=== PATIENT | male | born 1985 | race Caucasian/White ===

== ENCOUNTER → 2023-01-17 07:30 | Outpatient (BNVA) | payer OTHER, SELFPAY | PROVIDERS: Visit Provider Physician Assistant Surgical ==

== ENCOUNTER 2023-01-26 08:26 | Outpatient (AMB) | payer OTHER, SELFPAY ==
--- NOTE | 2023-01-26 11:08 | MHC.OFFVISWM ---
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 49.0 Allergies Penicillins Allergy (Mild, Verified 01/26/23 11:08) Rash Medication List - Last Reconciled 01/26/23 by Vinny Roland MD bupropion HCl 150 mg PO QAM buspirone 15 mg PO BID famotidine 20 mg PO BEDTIME icosapent ethyl (Vascepa) 2 grams PO BID levothyroxine 150 mcg PO DAILY lisinopril 20 mg PO DAILY metformin ER 500 mg PO DAILY tadalafil 5 mg PO DAILY HPI 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 BMI 49.0 HPI Details Start time: 10.57am, End time: 11.42am ?I spent 40 minutes speaking with the patient on the phone plus an additional 5 minutes reviewing and updating records for a total of 45 minutes HPI Comments History of Present Illness Details Previous weight loss efforts: Keto diet, exercise Wakes up: 3.30am, Sleeps: 8pm Breakfast: 6am Premier protein shake Lunch: 10.30-11am (protein and vegetables) Dinner: 6pm (protein, vegetable, starch) Snacks: occasionally donut at 9am, 4pm-5pm (chips) Exercise: none, has gym access Fluids: occasional Coffee, tea: none, soda: occasional regular coke, juice: Gatorade zero, ETOH: none PFSH Medical History (Updated 01/26/23 @ 11:27 by Vinny Roland MD) Erectile dysfunction Hypothyroidism GERD (gastroesophageal reflux disease) Anxiety Depression Sleep apnea treated with continuous positive airway pressure (CPAP) Hyperlipidemia Hypertension Morbid obesity Surgical History (Updated 01/17/23 @ 07:48 by Paula Guillaume CMA) No history of previous surgery Family History (Updated 01/17/23 @ 07:50 by Paula Guillaume CMA) Mother No problems noted. Father Lung cancer Brain cancer Social History (Updated 01/17/23 @ 07:50 by Paula Guillaume CMA) Alcohol intake: never Patient Tobacco Use Status: Never used Tobacco Physical Exam Vital Signs: BMI result Body Mass Index 49.0 Assessment & Plan Assessment & Plan (1) Morbid obesity: Code(s): E66.01 - Morbid (severe) obesity due to excess calories Plan: 1.? Plan for lap sleeve gastrectomy. If diaphragmatic or ventral hernias are present at time of surgery, these will be repaired laparoscopically as well. Risks and complications were discussed in detail including possible conversion to an open procedure, anastomotic leak, bleeding requiring transfusion, small bowel obstruction, , DVT and pulmonary embolism, cardiac, or pulmonary complications, as custodial complications such as anastomotic ulcer, insufficient weight loss and vitamin deficiencies. I emphasized the importance of close follow-up, adherence to instructions and good communication. 2. Nutritional counseling. Start with one Premier protein (buy at [employer], [employer], [employer], [employer] shakes (ONE scoop in 8oz low fat unsweetened almond milk each) at 5am-7am, 3 protein bars (Zone Perfect protein bars, buy at [employer], [employer], [employer] ([place] or [employer]) at 8am-10am, 11am-1pm and 2pm-4pm, another HALF protein bar at 5pm-6pm, dinner at 7pm (12 forks of protein and 12 forks of salad/vegetables). So you do 1 protein shake, 3.5 protein bars and one meal per day. Meal to include lean meat (beef, fish, pork, turkey, chicken), or albanian yogurt, or egg whites, or beans with a salad with olive oil and fruits (berries, pears, apples, kiwi). Avoid salt, breads, potatoes, rice, pasta, desserts. 3. Each shake would be drunk slowly, like coffee in a period of 2 hours. 4. Cut each bar in 4 pieces and eat each piece in 30min ?to make each bar last 2 hours. 5. I emphasized the importance of measuring accurately the food portion and measure it when serving the food in plate 6. The meal portions include 12 full-size forks of meat and 12 full-size forks of salad. You always eat the meat portion but you can replace up to 6 forks for salad/vegetables with rice, potatoes or pasta, or a fruit ?if you like. The less you do it the better weight loss will be. 7. One full-size fork is what it can be scooped on the fork without falling aside and not what can be bit with the fork. Use regular forks like those you find in a typical restaurant. 8.? Please send me weight measurements as soon as possible and then once a week. Always include your diet and exercise plan. 9. Start treadmill with an incline of 2.0 and speed of 3.5 mph. Increase incline by 1 every 3 min to a max incline of 8.0, stay 3min at 8.0 and then return to 2.0 and repeat same steps until calorie goal is met. Goal is to burn 2000 calories per week on exercise, which means either 300 calories daily, or 400 calories 5 days per week, or 500 calories 4 days per week, or 650 calories 3 days per week. 10. Alternatively purchase a stationary bike, elliptical or treadmill at home that can track calories. Let me know if you do so I can give you an exercise plan. 11.Goal is to lose at least 1.5-2lbs per week 12. Goal to lose 10% of your weight before surgery, which is about 35lbs. Ultimate weight goal: 311lbs before surgery 13. Please follow the diet plan exactly without any change. If you don't like something about the plan or you feel hungry you need to communicate with me so I can help you revise the plan. You should not change the plan yourself. Orders: Orders Insulin Today E03.9 - Hypothyroidism, unspecified, E66.01 - Morbid (severe) obesity due to excess calories, E78.5 - Hyperlipidemia, unspecified, G47.30 - Sleep apnea, unspecified, I10 - Essential (primary) hypertension, K21.9 - Gastro-esophageal reflux disease without esophagitis Hemoglobin A1c Today E03.9 - Hypothyroidism, unspecified, E66.01 - Morbid (severe) obesity due to excess calories, E78.5 - Hyperlipidemia, unspecified, G47.30 - Sleep apnea, unspecified, I10 - Essential (primary) hypertension, K21.9 - Gastro-esophageal reflux disease without esophagitis Complete Blood Count Auto Diff Today E03.9 - Hypothyroidism, unspecified, E66.01 - Morbid (severe) obesity due to excess calories, E78.5 - Hyperlipidemia, unspecified, G47.30 - Sleep apnea, unspecified, I10 - Essential (primary) hypertension, K21.9 - Gastro-esophageal reflux disease without esophagitis IRON PROFILE Today E03.9 - Hypothyroidism, unspecified, E66.01 - Morbid (severe) obesity due to excess calories, E78.5 - Hyperlipidemia, unspecified, G47.30 - Sleep apnea, unspecified, I10 - Essential (primary) hypertension, K21.9 - Gastro-esophageal reflux disease without esophagitis Comprehensive Met. Panel Today E03.9 - Hypothyroidism, unspecified, E66.01 - Morbid (severe) obesity due to excess calories, E78.5 - Hyperlipidemia, unspecified, G47.30 - Sleep apnea, unspecified, I10 - Essential (primary) hypertension, K21.9 - Gastro-esophageal reflux disease without esophagitis Vitamin B12 and Folate Today E03.9 - Hypothyroidism, unspecified, E66.01 - Morbid (severe) obesity due to excess calories, E78.5 - Hyperlipidemia, unspecified, G47.30 - Sleep apnea, unspecified, I10 - Essential (primary) hypertension, K21.9 - Gastro-esophageal reflux disease without esophagitis Zinc Today E03.9 - Hypothyroidism, unspecified, E66.01 - Morbid (severe) obesity due to excess calories, E78.5 - Hyperlipidemia, unspecified, G47.30 - Sleep apnea, unspecified, I10 - Essential (primary) hypertension, K21.9 - Gastro-esophageal reflux disease without esophagitis Vitamin A Today E03.9 - Hypothyroidism, unspecified, E66.01 - Morbid (severe) obesity due to excess calories, E78.5 - Hyperlipidemia, unspecified, G47.30 - Sleep apnea, unspecified, I10 - Essential (primary) hypertension, K21.9 - Gastro-esophageal reflux disease without esophagitis Ferritin Today E03.9 - Hypothyroidism, unspecified, E66.01 - Morbid (severe) obesity due to excess calories, E78.5 - Hyperlipidemia, unspecified, G47.30 - Sleep apnea, unspecified, I10 - Essential (primary) hypertension, K21.9 - Gastro-esophageal reflux disease without esophagitis US abdomen comp w elastography Today E03.9 - Hypothyroidism, unspecified, E66.01 - Morbid (severe) obesity due to excess calories, E78.5 - Hyperlipidemia, unspecified, G47.30 - Sleep apnea, unspecified, I10 - Essential (primary) hypertension, K21.9 - Gastro-esophageal reflux disease without esophagitis H Pylori Breath Test Today E03.9 - Hypothyroidism, unspecified, E66.01 - Morbid (severe) obesity due to excess calories, E78.5 - Hyperlipidemia, unspecified, G47.30 - Sleep apnea, unspecified, I10 - Essential (primary) hypertension, K21.9 - Gastro-esophageal reflux disease without esophagitis Lipid Panel Today E03.9 - Hypothyroidism, unspecified, E66.01 - Morbid (severe) obesity due to excess calories, E78.5 - Hyperlipidemia, unspecified, G47.30 - Sleep apnea, unspecified, I10 - Essential (primary) hypertension, K21.9 - Gastro-esophageal reflux disease without esophagitis C Reactive Protein Today E03.9 - Hypothyroidism, unspecified, E66.01 - Morbid (severe) obesity due to excess calories, E78.5 - Hyperlipidemia, unspecified, G47.30 - Sleep apnea, unspecified, I10 - Essential (primary) hypertension, K21.9 - Gastro-esophageal reflux disease without esophagitis Vitamin B1 Today E03.9 - Hypothyroidism, unspecified, E66.01 - Morbid (severe) obesity due to excess calories, E78.5 - Hyperlipidemia, unspecified, G47.30 - Sleep apnea, unspecified, I10 - Essential (primary) hypertension, K21.9 - Gastro-esophageal reflux disease without esophagitis TSH reflex Free T4 Today E03.9 - Hypothyroidism, unspecified, E66.01 - Morbid (severe) obesity due to excess calories, E78.5 - Hyperlipidemia, unspecified, G47.30 - Sleep apnea, unspecified, I10 - Essential (primary) hypertension, K21.9 - Gastro-esophageal reflux disease without esophagitis Vitamin D 25-OH Total Today E03.9 - Hypothyroidism, unspecified, E66.01 - Morbid (severe) obesity due to excess calories, E78.5 - Hyperlipidemia, unspecified, G47.30 - Sleep apnea, unspecified, I10 - Essential (primary) hypertension, K21.9 - Gastro-esophageal reflux disease without esophagitis XR chest 2V Today E03.9 - Hypothyroidism, unspecified, E66.01 - Morbid (severe) obesity due to excess calories, E78.5 - Hyperlipidemia, unspecified, G47.30 - Sleep apnea, unspecified, I10 - Essential (primary) hypertension, K21.9 - Gastro-esophageal reflux disease without esophagitis ECG 12 lead EKG Today E03.9 - Hypothyroidism, unspecified, E66.01 - Morbid (severe) obesity due to excess calories, E78.5 - Hyperlipidemia, unspecified, G47.30 - Sleep apnea, unspecified, I10 - Essential (primary) hypertension, K21.9 - Gastro-esophageal reflux disease without esophagitis FL upper GI w air Today E03.9 - Hypothyroidism, unspecified, E66.01 - Morbid (severe) obesity due to excess calories, E78.5 - Hyperlipidemia, unspecified, G47.30 - Sleep apnea, unspecified, I10 - Essential (primary) hypertension, K21.9 - Gastro-esophageal reflux disease without esophagitis Referrals Behavioral Health Referral E03.9 - Hypothyroidism, unspecified, E66.01 - Morbid (severe) obesity due to excess calories, E78.5 - Hyperlipidemia, unspecified, G47.30 - Sleep apnea, unspecified, I10 - Essential (primary) hypertension, K21.9 - Gastro-esophageal reflux disease without esophagitis Nutrition/Dietitian Referral E03.9 - Hypothyroidism, unspecified, E66.01 - Morbid (severe) obesity due to excess calories, E78.5 - Hyperlipidemia, unspecified, G47.30 - Sleep apnea, unspecified, I10 - Essential (primary) hypertension, K21.9 - Gastro-esophageal reflux disease without esophagitis Telehealth Telehealth Location of provider rendering services: practice address Location of patient: address on file Patient Identification confirmed using: Name, : Yes Telehealth method: voice only Patient verbally consented to treatment: Yes Patient verbally consented to billing insurance company: Yes Patient informed of any privacy concerns related to visit: Yes Minutes spent on Phone/Video with Pt.: 45 Coding Level of Care Code Tele [facility] Pt Level 4 (83987) Diagnoses Morbid obesity E66.01 Time Spent (min) 45
[2023-01-26 11:21] VITALS: BMI 49.0
== END 2023-01-26 11:44 | disposition home or self-care (01) ==
LOC: HO.HBS 08:26
PROVIDERS: Visit Provider Surgery
DX: E66.01 Morbid (severe) obesity due to excess calories (principal)
CPT/HCPCS: 99204

== ENCOUNTER → 2023-01-26 08:26 | Outpatient (BNVA) | payer OTHER, SELFPAY | PROVIDERS: Visit Provider Surgery ==

== ENCOUNTER 2023-02-10 07:18 | Outpatient (REF) | payer OTHER, SELFPAY ==
--- NOTE | ~2023-02-10 | XR_ITS ---
EXAMINATION: XR CHEST CLINICAL INFORMATION: Morbid (severe) obesity due to excess calories COMPARISON: None available. TECHNIQUE: 2 views of the chest were obtained. FINDINGS: No significant abnormality is noted involving the heart, lungs, mediastinum, bony thorax or soft tissues. XR/XR chest 2V IMPRESSION: No acute cardiopulmonary disease.
[2023-02-10 08:20] LABS: MANUAL DIFF FLAG NO
[2023-02-10 08:54] LABS: Basophils Percent Auto 0.5 % (0-2); Eosinophils Absolute Auto 0.2 X10*3/uL (0.0-0.4); Eosinophils Percent Auto 2.7 % (0-4); Hematocrit 43.2 % (42.0-52.0); Hemoglobin 14.8 g/dl (14.0-18.0); Imm Gran Abs Auto 0.03 X10*3/uL (0.00-0.03); Imm Gran Pct Auto 0.4 % (0.0-0.4); Lymphocytes Absolute Auto 2.9 X10*3/uL (1.2-4.9); Lymphocytes Percent Auto 36.5 % (20-40); Mean Corpuscular HGB Conc 34.3 g/dl (31.0-36.0); Mean Corpuscular Hemoglobin 29.4 pg (27.0-33.0); Mean Corpuscular Volume 85.7 fL (80.0-98.0); Mean Platelet Volume 9.9 fL (9.4-12.4); Monocytes Absolute Auto 0.6 X10*3/uL (0.1-1.2); Monocytes Percent Auto 7.6 % (2-11); Neutrophils Absolute Auto 4.1 x10*3/uL (2.0-8.3); Neutrophils Percent Auto 52.3 % (45-73); Platelet Count 394 X10*3/uL (160-400); Red Blood Count 5.04 X10*6/uL (4.60-5.80); Red Cell Distribution Width 13.3 % (11.0-16.0); White Blood Count 7.9 X10*3/uL (4.8-10.8)
[2023-02-10 09:08] LABS: Estimated Average Glucose 105 mg/dL; Hemoglobin A1c % 5.3 % (<6.0)
[2023-02-10 09:30] LABS: Alanine Aminotransferase 58 U/L (0-40); Albumin Level 4.2 g/dL (3.5-5.0); Alkaline Phosphatase 58 U/L (39-117); Anion Gap 14 (12-20); Aspartate Amino Transferase 30 U/L (5-37); Bilirubin Total 0.4 mg/dL (0.0-1.0); Blood Urea Nitrogen 15 mg/dL (9-16); C Reactive Protein 3.95 mg/dL (< or = 0.50); Calcium 9.5 mg/dL (8.4-10.2); Carbon Dioxide 22 mmol/L (22-29); Chloride 108 mmol/L (96-108); Cholesterol 179 mg/dL (<200); Estimated Glomerular Filt Rate > 60; Glucose Random 110 mg/dL (60-115); HDL Cholesterol 27 mg/dL (>40); Iron 82 mcg/dL (45-160); LDL Cholesterol Calculated 126 mg/dL (<100); Percent Iron Saturation 32 % (15-50); Potassium 4.2 mmol/L (3.3-5.1); Sodium 140 mmol/L (135-145); Total Iron Binding Capacity 257 mcg/dL (228-428); Total Protein 7.8 g/dL (6.5-8.0); Triglycerides 132 mg/dL (<150); Unsaturated Iron Binding 175 ug/dL
[2023-02-10 09:51] LABS: Ferritin 193 ng/mL (20-250); Insulin 34 uU/mL (2-29); TSH reflex Free T4 3.03 uIU/mL (0.32-4.0); Vitamin D 25-OH Total 38.1 ng/mL (>30)
[2023-02-10 09:55] LABS: Folate 14.8 ng/mL (> or = 4.0); Vitamin B12 674 pg/mL (200-900)
[2023-02-13 18:18] LABS: Zinc 81 mcg/dL (60-130)
[2023-02-15 14:39] LABS: Vitamin B1 14 nmol/L (8-30)
== END 2023-02-10 07:19 | disposition home or self-care (01) ==
LOC: HO.XRAY 07:18
PROVIDERS: Visit Provider Surgery
DX: E66.01 Morbid (severe) obesity due to excess calories (principal); I10 Essential (primary) hypertension; E78.5 Hyperlipidemia, unspecified; G47.30 Sleep apnea, unspecified; K21.9 Gastro-esophageal reflux disease without esophagitis; E03.9 Hypothyroidism, unspecified
CPT/HCPCS: 36415; 71046; 80053; 80061; 82306; 82607; 82728; 82746; 83036; 83525; 83540; 84425; 84443; 84590; 84630; 85025; 86140

== ENCOUNTER → 2023-02-20 08:32 | Outpatient (REF) | payer OTHER, SELFPAY ==
--- NOTE | 2023-02-20 08:36 | ECG_ITS ---
Test Reason : mor obesity Blood Pressure : / mmHG Vent. Rate : 080 BPM Atrial Rate : 080 BPM P-R Int : 150 ms QRS Dur : 086 ms QT Int : 380 ms P-R-T Axes : 017 015 062 degrees QTc Int : 438 ms Normal sinus rhythm Nonspecific T wave abnormality Abnormal ECG No previous ECGs available Referred By: Vinny Roland Electronically Signed By:CRISSY SZYMANSKI
== END ==
LOC: HO.CARD 08:32
PROVIDERS: Visit Provider Surgery
DX: I10 Essential (primary) hypertension (principal); E66.01 Morbid (severe) obesity due to excess calories
CPT/HCPCS: 93005

== ENCOUNTER → 2023-02-20 08:36 | Outpatient (BNV) | payer OTHER, SELFPAY | PROVIDERS: Visit Provider Internal Medicine | DX: E66.01 Morbid (severe) obesity due to excess calories (principal); R94.31 Abnormal electrocardiogram [ECG] [EKG] | CPT/HCPCS: 93010 ==

== ENCOUNTER 2023-02-21 06:37 | Day surgery (SDC) | payer OTHER, SELFPAY ==
--- NOTE | 2023-02-20 18:06 | P.HPSUR_ITS ---
Pre-Procedural Eval Section A Date of Service: 02/20/23 The patient is an INPATIENT: No The History & Physical has been completed within 30 days and I have reviewed it.: No Section B Chief Complaint: Gastro-esophageal reflux disease without esophagit Relevant Family History (Specify if Yes): No Relevant Social History: None Present Medications: None Medical History: No relevant PMH History of Previous Operations: No relevant previous surgery Allergies: Allergies Allergy/AdvReac Type Severity Reaction Status Date / Time Penicillins Allergy Mild Rash Verified 01/26/23 11:08 Review of Systems Sugical H&P ROS: Negative: Constitution, Cardiovascular, Respiratory, Neurological, Psychiatric, Hem-Onc, Allergic/Immunologic, Gastrointestinal, Genitourinary, Musculoskeletal, Integumentary, Endocrine and Eyes/Ears /Nose/Throat Exam Surgical H&P Exam: Normal: HEENT, Normal: Heart, Normal: Lungs, Normal: Extremities, Normal: Abdomen, Normal: Skin and Normal: Neurological Plan Diagnosis/Plan: Unchanged (EGD to assess for esophagitis. Risks for perforation and bleeding were discussed with patient. She is in agreement with the plan) I have reviewed the history and physical and performed a pertinent physical examination on my patient. No changes have occurred unless specified. Time Spent With Patient Time: Total time managing care of this patient today ____ minutes.
[2023-02-21 07:04] VITALS: BMI 47.8
[2023-02-21 07:20] VITALS: BP 140/96; PULSE 76; RESP 16; TEMP 36.2; O2SAT 92
[2023-02-21] MEDS: Lactated Ringers 1,000 ML 80 ML IVCONT (07:21)
--- NOTE | 2023-02-21 07:41 | P.CONAN_ITS ---
[facility] Active Problems Active Problems: All Active Problems (Updated 01/26/23 @ 11:27 by Vinny Roland MD) Erectile dysfunction (Acute) Hypothyroidism (Acute) GERD (gastroesophageal reflux disease) (Acute) Anxiety (Acute) Depression (Acute) Sleep apnea treated with continuous positive airway pressure (CPAP) (Acute) Hyperlipidemia (Acute) Hypertension (Acute) Morbid obesity (Acute) Past Medical History Medical History (Updated 01/26/23 @ 11:27 by Vinny Roland MD) Erectile dysfunction Hypothyroidism GERD (gastroesophageal reflux disease) Anxiety Depression Sleep apnea treated with continuous positive airway pressure (CPAP) Hyperlipidemia Hypertension Morbid obesity Family History Family History (Updated 01/17/23 @ 07:50 by Paula Guillaume CMA) Mother No problems noted. Father Lung cancer Brain cancer Family history of problems with anesthesia: Unobtainable Surgical History Surgical History (Updated 01/17/23 @ 07:48 by Paula Guillaume CMA) No history of previous surgery History of Problems with Anesthesia: Unobtainable Social History Social History (Updated 01/17/23 @ 07:50 by Paula Guillaume CMA) Alcohol intake: never Patient Tobacco Use Status: Never used Tobacco Second Hand Smoke Exposure: No Use of substances other than those prescribed or required for medical reasons: No Are you DNR?: No Advance Directives: No Advance Directives Information Provided: Yes Advance Directives on File: No Meds Allergies Allergy/AdvReac Type Severity Reaction Status Date / Time Penicillins Allergy Mild Rash Verified 01/26/23 11:08 Active Medications: Current Medications Lactated Ringer's (Lr) 1,000 mls @ 80 mls/hr IVCONT .[id number] Last Admin: 02/21/23 07:21 Dose: 80 mls/hr Home Medications Medication Instructions Recorded Confirmed Last Taken Type bupropion HCl 150 mg 24 hr tablet, 150 mg PO QAM 01/17/23 01/26/23 Unknown History extended release buspirone 15 mg tablet 15 mg PO BID 01/17/23 01/26/23 Unknown History icosapent ethyl 1 gram capsule 2 g PO BID 01/17/23 01/26/23 Unknown History (Vascepa) levothyroxine 150 mcg capsule 150 mcg PO DAILY 01/17/23 01/26/23 Unknown History lisinopril 20 mg tablet 20 mg PO DAILY 01/17/23 01/26/23 Unknown History metformin 500 mg tablet,extended 500 mg PO DAILY 01/17/23 01/26/23 Unknown History release 24 hr tadalafil 5 mg tablet 5 mg PO DAILY 01/17/23 01/26/23 Unknown History famotidine 20 mg tablet 20 mg PO BEDTIME 01/26/23 01/26/23 Unknown History Exam Height,Weight and Vital Signs: Height 5 ft 10.5 in Weight 153.314 kg Last Vital Signs Temp 97.1 F 02/21/23 07:20 Pulse 76 02/21/23 07:20 Resp 16 02/21/23 07:20 BP 140/96 H 02/21/23 07:20 Pulse Ox 92 02/21/23 07:20 O2 Del Method Room Air 02/21/23 07:20 Assessment and Plan Final Anesthetic Review Family History of Problems with Anesthesia: Unobtainable History of Problems with Anesthesia: Unobtainable NPO: Yes ASA Class: II Final Preanesthetic Review: No Changes in Pt Med Stat, Meds/Allgs Chart Reviewed, Consent Obtained/Reviewed and Anes Risks/Benef Reviewed Patient Risk: High Procedure Risk: Low Anesthetic Plan Anesthetic Plan: MAC: Disposition: Standard PACU
--- NOTE | 2023-02-21 08:11 | P.BOP_ITS ---
Brief Operative Note Date of Service: 02/21/23 Pre-op diagnosis: GERD Post-op diagnosis: same (& small diaphragmatic hernia) Procedure: PROCEDURE DATE: 02/21/2023 PREOPERATIVE DIAGNOSIS: GERD POSTOPERATIVE DIAGNOSIS: ?Same as above. 1) small hiatal hernia, 2) distal gastritis PROCEDURE: Adrxiubz-ozwjbq-ovrljyqdnenn with biopsies Surgeon: ?Edward Roland M.D.. Ph.D. Hard Metals Engraver Hand: None ? Anesthesia: IV sedation Estimated blood loss: ?Minimal FINDINGS AND PROCEDURE: ? OPERATIVE INDICATIONS: ?The patient is a 37 year old male known to me who is interested in bariatric surgery. The patient has severe GERD being on H-2 blockers. Based on this information I recommended an upper endoscopy to evaluate the patient's symptoms. Risks and complications of the surgery were discussed with the patient in advance particularly the possibility of perforation or bleeding that may require surgical intervention. The patient understood the risks and was in agreement with the plan. ? PROCEDURE: After informed consent was obtained by the patient, the patient was ?transferred to the Operating Room and was placed in the supine position.? After successful induction of IV sedation, a mouth block was inserted and the patient was placed in the left lateral decubitus position. An upper endoscopy was performed next, the oropharynx and esophagus appeared within the normal limits. There was a small 2cm hiatal hernia. The z-line was smooth. Two biopsies were obtained from the distal esophagus 2-3 cm proximal to the GE junction and two additional biopsies from the GE junction. The stomach was entered and it appeared to be of normal size. There was mild gastritis at distal antrum. There was no stricture or ulcer. A biopsy was obtained from the distal antrum and gastric fundus. No significant bleeding was noted from any of the biopsy sites. The scope was then advanced into the duodenum which appeared to be normal as well. At that point the duodenum ?and the stomach were decompressed and the scope was withdrawn from the patient's mouth. The patient extubated and was transferred in stable condition to the Recovery Room for further care. I was present and performed all steps of the procedure. There were no residents to assist with this case. Edward Roland M.D., Ph.D. Surgeon: Vinny Roland MD Anesthesia: GETA Was an Hard Metals Engraver Hand used for this Procedure?: No Estimated blood loss (mL): 0 IV fluids (mL): 400 Urine output (mL): 0 (No Navarro to record output) Pathology: other (1) fundus x1, 2) antrum x1, 3) GE junction x2, 4) distal esophagus ) Condition: stable Disposition: PACU
[2023-02-21 08:51] VITALS: BP 95/46; PULSE 95; RESP 17; TEMP 36.8; O2SAT 95
[2023-02-21 09:06] VITALS: BP 109/65; PULSE 75; RESP 18; TEMP 36.2; O2SAT 94
== END 2023-02-21 09:42 | disposition home or self-care (01) ==
PROVIDERS: Visit Provider Surgery
PROC: 0DJ08ZZ Inspection of Upper Intestinal Tract, Via Natural or Artificial Opening Endoscopic (ICD-10-PCS; CPT 43235; principal; 2023-02-21 08:20)
DX: K21.9 Gastro-esophageal reflux disease without esophagitis (principal); K29.60 Other gastritis without bleeding; K44.9 Diaphragmatic hernia without obstruction or gangrene; E66.01 Morbid (severe) obesity due to excess calories; Z68.42 Body mass index [BMI] 45.0-49.9, adult; I10 Essential (primary) hypertension; E03.9 Hypothyroidism, unspecified; E78.5 Hyperlipidemia, unspecified; N52.9 Male erectile dysfunction, unspecified; G47.33 Obstructive sleep apnea (adult) (pediatric); F32.A Depression, unspecified; F41.9 Anxiety disorder, unspecified; Z79.84 Long term (current) use of oral hypoglycemic drugs; Z79.899 Other long term (current) drug therapy; Z99.89 Dependence on other enabling machines and devices; Z88.0 Allergy status to penicillin
CPT/HCPCS: 43239; 88305; 88342; J1100; J2250; J2405; J2704; J3010

== ENCOUNTER → 2023-02-21 06:37 | Outpatient (BNV) | payer OTHER, SELFPAY | PROVIDERS: Visit Provider Surgery | DX: K21.9 Gastro-esophageal reflux disease without esophagitis (principal); K29.70 Gastritis, unspecified, without bleeding | CPT/HCPCS: 43239 ==

== ENCOUNTER 2023-02-23 08:08 | Outpatient (AMB) | payer OTHER, SELFPAY ==
--- OUTSIDE RECORDS SUMMARY | 2023-02-23 08:10 | XMS_ITS | Continuity of Care Document ---
Author Name Unknown Organization [facility] Rashid Hein Amilcar lt Address [address] [place] [address]- Care Team Providers Care Phd Intern Name Role Phone Not on Staff, PCP Primary Care Physician Unavail able Encounter [facility] Date(s): 10/24/21 - 11/23/21 [facility] Rashid Gordonley Adult [address] [place] [address]- Patient Care team information Personnel Name: Not on Staff, PCP
--- OUTSIDE RECORDS SUMMARY | 2023-02-23 08:10 | XMS_ITS | Continuity of Care Document ---
Author Name Unknown Organization [facility] Adult Address [address] [place] [address]- Care Team Providers Care Siding Coreboard Inspector Name Role Phone Not on Staff, PCP Primary Care Physician Unavail able Encounter [facility] Date(s): 08/31/22 - 12/29/22 [facility] Adult [address] [place] [address]- Attending Physician: Not on Staff, Attending MD Patient Care team information Care Team Personnel Name: Not on Staff, PCP Position: [facility] Physician (General Medicine) Member Role: PCP
--- OUTSIDE RECORDS SUMMARY | 2023-02-23 08:10 | XMS_ITS | Continuity of Care Document ---
Author Name Unknown Organization [facility] Adult Address [address] [place] [address]- Care Team Providers Care Upholstery Technician Name Role Phone Not on Staff, PCP Primary Care Physician Unavail able Encounter [facility] Date(s): 11/29/22 - 12/29/22 [facility] Adult [address] [place] [address]- Attending Physician: Atiya Elliott Admitting Physician: AdmAtiya vanessa Referring Physician: Admtr, Ar8 Patient Care team information Care Team Personnel Name: Not on Staff, PCP Position: S Physician (General Medicine) Member Role: PCP
--- NOTE | 2023-02-23 09:36 | A.OFFVIS_ITS ---
Intake VS Expanded 02/23/23 09:46 Height 5 ft 10.5 in Weight 337 lb 8 oz BMI 47.7 Body Fat % 53 Body Fat Mass 179 Fat Free Mass 158.8 Visceral Fat Rating 29 Body Water % 33.9 Body Water Mass 114.5 Basal Metabolic Rate/Score 1,925 Intake Visit Reasons: TV Follow Up SWL - 1ST Allergies Penicillins Allergy (Mild, Verified 01/26/23 11:08) Rash HPI TV Follow Up SWL - 1ST HPI Details Start time: 9.31am, End time: 9.51am ?I spent 15 minutes speaking with the patient on the phone plus an additional 5 minutes reviewing and updating records for a total of 20 minutes HPI Comments History of Present Illness Details Overall weight loss: 8.6lbs, or 2.48% TBWL Is doing 2 Premier powdered protein shakes (2 scoops each in almond milk), one Zone Perfect protein bar and one meal (12 forks of protein and 12 forks of salad or vegetables) Exercise: outside walking 5 days per week. Got a stationary bike [facility] Medical History (Updated 02/23/23 @ 09:35 by Vinny Roland MD) Erectile dysfunction Hypothyroidism GERD (gastroesophageal reflux disease) Anxiety Depression Sleep apnea treated with continuous positive airway pressure (CPAP) Hyperlipidemia Hypertension Morbid obesity Surgical History (Updated 01/17/23 @ 07:48 by Paula Guillaume CMA) No history of previous surgery Family History (Updated 01/17/23 @ 07:50 by Paula Guillaume CMA) Mother No problems noted. Father Lung cancer Brain cancer Social History (Updated 01/17/23 @ 07:50 by Paula Guillaume CMA) Alcohol intake: never Patient Tobacco Use Status: Never used Tobacco Second Hand Smoke Exposure: No Assessment & Plan Assessment & Plan (1) Morbid obesity: Code(s): E66.01 - Morbid (severe) obesity due to excess calories Plan: 1. Continue same nutritional plan of 2 Premier powdered protein shakes (2 scoops each in almond milk), one Zone Perfect protein bar and one meal (12 forks of protein and 12 forks of salad or vegetables) 2. Exercise: start stationary bike at a resistance level of 4.0 Increase level by 1.0 every 3 min to a max level of 10.0. Stay at this level for 3 min and then return to level 4.0 and repeat same steps until 300 calories are burned. Velocity target is 12mph and heart rate is 145 bpm. Goal is to burn 2000 calories per week on exercise 3. Start the Pantoprazole one per day for esophagitis 4. Continue to send weight measurements weekly on Sundays Orders: Orders CA echo transthorac w con Today R94.31 - Abnormal electrocardiogram [ECG] [EKG] CA stress test Today R94.31 - Abnormal electrocardiogram [ECG] [EKG] Medications: New pantoprazole 40 mg PO DAILY 90 tabs 0RF K20.90 - Esophagitis, unspecified without bleeding Telehealth Telehealth Location of provider rendering services: practice address Location of patient: address on file Patient Identification confirmed using: Name, : Yes Telehealth method: voice only Patient verbally consented to treatment: Yes Patient verbally consented to billing insurance company: Yes Patient informed of any privacy concerns related to visit: Yes Minutes spent on Phone/Video with Pt.: 20 Coding Level of Care Code Tele Est Pt Level 3 (63898) Diagnoses Morbid obesity E66.01 Time Spent (min) 20
[2023-02-23 09:46] VITALS: BMI 47.7
== END 2023-02-23 09:52 | disposition home or self-care (01) ==
LOC: HO.HBS 08:08
PROVIDERS: Visit Provider Surgery
DX: E66.01 Morbid (severe) obesity due to excess calories (principal)
CPT/HCPCS: 99213

== ENCOUNTER → 2023-02-23 08:08 | Outpatient (BNVA) | payer OTHER, SELFPAY | PROVIDERS: Visit Provider Surgery ==

== ENCOUNTER 2023-03-01 09:44 | Outpatient (AMB) | payer OTHER, SELFPAY ==
--- NOTE | 2023-03-01 09:40 | MHC.AMNUTRGE ---
Intake Intake Visit Reasons: (TV) Initial Nutrition SWL Allergies Penicillins Allergy (Mild, Verified 01/26/23 11:08) Rash HPI Nutrition Presentation Reason for consult elevated BMI Diet Assmnt Details Pt states he has been doing well in the program, has no complaints or concerns today. Commutes 1 hour and 15 minutes to and from work - lives in [facility] and works in [place]. wakes up at 3am, home by 5pm. Is making time to exercise however in the evenings. Has a stationary bike and uses for 20-35 mins daily SWL online classes completed, pt has no questions Dietary counseling reduction Who buys your food self and spouse Who prepares/cooks your food self and spouse Lifestyle Eating out 1-3 times/week Food frequency Dairy: daily, Fruit: daily, Vegetables: daily, Grains/pasta/breads/cereal (carbs): daily, Meats/poultry/fish (protein): daily, Restaurants/fast foods: several times weekly, Water: daily, Soda: daily, Juice: daily and Coffee: daily Diagnosis Nutrition problem #1 overweight/obesity As related to (etiology) #1 excess energy intake and physical inactivity As evidenced by (sign/symptom) #1 high BMI Monitoring/Goals Nutrition problem monitoring total energy intake, level of knowledge/skill, total PRO intake and weight Outcome progress progressing Learning/Education Readiness to learn excellent Stages of change action Educational materials provided Yes Most Recent Diabetes Results: Cholesterol 179 mg/dL (<200) 02/10/23 HDL Cholesterol 27 mg/dL (>40) L 02/10/23 Triglycerides 132 mg/dL (<150) 02/10/23 Creatinine 0.96 mg/dL (0.5-1.4) 02/10/23 Blood Urea Nitrogen 15 mg/dL (9-16) 02/10/23 Sodium 140 mmol/L (135-145) 02/10/23 Potassium 4.2 mmol/L (3.3-5.1) 02/10/23 Chloride 108 mmol/L (96-108) 02/10/23 Carbon Dioxide 22 mmol/L (22-29) 02/10/23 Calcium 9.5 mg/dL (8.4-10.2) 02/10/23 AST 30 U/L (5-37) 02/10/23 ALT 58 U/L (0-40) H 02/10/23 Total Protein 7.8 g/dL (6.5-8.0) 02/10/23 Albumin 4.2 g/dL (3.5-5.0) 02/10/23 PFSH Medical History (Updated 02/23/23 @ 09:35 by Vinny Roland MD) Erectile dysfunction Hypothyroidism GERD (gastroesophageal reflux disease) Anxiety Depression Sleep apnea treated with continuous positive airway pressure (CPAP) Hyperlipidemia Hypertension Morbid obesity Surgical History (Updated 01/17/23 @ 07:48 by Paula Guillaume CMA) No history of previous surgery Family History (Updated 01/17/23 @ 07:50 by Paula Guillaume CMA) Mother No problems noted. Father Lung cancer Brain cancer Social History (Updated 01/17/23 @ 07:50 by Paula Guillaume CMA) Alcohol intake: never Patient Tobacco Use Status: Never used Tobacco Second Hand Smoke Exposure: No Assessment & Plan Assessment & Plan (1) Morbid obesity: Code(s): E66.01 - Morbid (severe) obesity due to excess calories Plan Patient is cleared from a nutrition standpoint for bariatric surgery. Educational requirements have been completed. Reviewed vitamin supplementation and commitment to protein shake for several months post surgery. Encouraged communication with office as needed Telehealth Telehealth Location of provider rendering services: practice address Location of patient: address on file Patient Identification confirmed using: Name, : Yes Telehealth method: voice only Patient verbally consented to treatment: Yes Patient verbally consented to billing insurance company: Yes Patient informed of any privacy concerns related to visit: Yes Minutes spent on Phone/Video with Pt.: 20 Coding Level of Care Code Nutr Indiv Intake (84552) Diagnoses Morbid obesity E66.01 Time Spent (min) 20
== END 2023-03-01 09:59 | disposition home or self-care (01) ==
LOC: HO.HBS 09:44
PROVIDERS: Visit Provider Dietitian, Registered
DX: E66.01 Morbid (severe) obesity due to excess calories (principal)

== ENCOUNTER → 2023-03-01 09:44 | Outpatient (BNVA) | payer OTHER, SELFPAY | PROVIDERS: Visit Provider Dietitian, Registered | DX: E66.01 Morbid (severe) obesity due to excess calories (principal); Z71.3 Dietary counseling and surveillance | CPT/HCPCS: 97802 ==

== ENCOUNTER 2023-03-02 07:33 | Outpatient (REF) | payer OTHER, SELFPAY | END 2023-03-02 07:34 | disposition home or self-care (01) | LOC: HO.US 07:33 | PROVIDERS: Visit Provider Surgery | DX: E66.01 Morbid (severe) obesity due to excess calories (principal); I10 Essential (primary) hypertension; K21.9 Gastro-esophageal reflux disease without esophagitis; E03.9 Hypothyroidism, unspecified | CPT/HCPCS: 76705; 76981 ==

== ENCOUNTER 2023-03-05 16:00 | Outpatient (AMB) | payer OTHER, SELFPAY ==
--- NOTE | 2023-03-05 15:26 | MHC.WMTHER ---
Intake Intake Visit Reasons: VIDEO Intake Allergies Penicillins Allergy (Mild, Verified 01/26/23 11:08) Rash [facility] Medical History (Updated 02/23/23 @ 09:35 by Vinny Roland MD) Erectile dysfunction Hypothyroidism GERD (gastroesophageal reflux disease) Anxiety Depression Sleep apnea treated with continuous positive airway pressure (CPAP) Hyperlipidemia Hypertension Morbid obesity Surgical History (Updated 01/17/23 @ 07:48 by Paula Guillaume CMA) No history of previous surgery Family History (Updated 01/17/23 @ 07:50 by Paula Guillaume CMA) Mother No problems noted. Father Lung cancer Brain cancer Social History (Updated 01/17/23 @ 07:50 by Paula Guillaume CMA) Alcohol intake: never Patient Tobacco Use Status: Never used Tobacco Second Hand Smoke Exposure: No Behavioral Health Assessment Weight Management Therapy Therapy Notes Details Pt is looking to have weight loss surgery to help improve his health and quality of life. Pt is not in therapy currently has never been as an adult. Pt reported that he has some anxiety and his doctor has given him medication and also was recently put on an antidepressant due to answers on a scale. He reported that he has not noticed a difference. Pt denied a history of any problems with drugs or alcohol, no legal problems, no inpatient psychiatric admissions, no history of self harming behavior or suicide attempts. Presenting Concerns Referral Source provider Reason for referral weight loss surgery evaluation Precipitating Event obesity Living Situation Current Living Situation Own At risk of losing current housing? No Satisfied with current living situation? Yes Comments Patient lives with her fiance and their pets. Food/Weight/Diet Expectations of change weight loss and maintenance History/Relationship with food He reported that sugary drinks were consumed often such as coffee drinks and sodas. Patient stated that he would often clear his plate rather than stopping when he is full. Also fast food about 3x's a week. History/Relationship with weight Pt reported that he has been overweight his whole life and was born at 10lbs. History/Relationship with dieting keto, fasting, low carb, juicing, WW, lost 25lbs in the past with fasting one day a week and exercise Binge Eating Do you frequently eat large amounts of food in short periods of time, not feeling physically hungry? No Do you feel out of control when you eat a large amount of food in a short period of time? No Do you eat large amounts of food rapidly and typically alone? Yes Night Eating Do you wake up at least once during the night to eat? No If you wake up in the night, do you find that it is necessary to eat something in order to fall back asleep? No Do you have little or no appetite in the morning and feel very hungry in the evening, often overeating between dinner and when you go to bed? No Social History Family history and relationship Pt was born and raised in [place] and then took a job in [place] and then switched jobs again moving to [place]. Pt stated that he was raised partially by his mother, somewhat by his father and then his grandmother. he stated that he was court mandated to go to therapy at age 5, there was drug use and instability in the home growing up. He has one brother and one sister. Some communication with his sister but not brother. Both parents have . Parental/Familial stain wiper obligations none Developmental history and status no issues Social support fianc?, co workers, Cultural/Ethnic information Legal Involvement and History Current or historical involvement with the legal system? none Education Highest grade completed college Preferred learning style Auditory, Verbal, Written, Learn by doing and Visual Currently enrolled in educational program? No Interested in further educational program? 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 No Meaningful activities video games, tv, walking the dog, naps Financial Situation Describe current financial situation Comfortable Financial assistance? None Service Service? No Mental Health and Addiction Treatment Current/Past substance abuse? No Current/Past addictive behavior concerns? No Pain Screening Current pain? Yes Pain in the last few months? Yes Medications Is the patient compliant with medications? Yes Does the patient have [employer] Guardian in place? Not applicable Does the patient use complimentary health approaches? No Trauma/Abuse History History of trauma? Yes Questionnaires PHQ-9 Over the last 2 weeks, how often have you been bothered by any of the following problems? 1. Little interest or pleasure in doing things: more than half the days 2. Feeling down, depressed, or hopeless: several days 3. Trouble falling or staying asleep, or sleeping too much: not at all 4. Feeling tired or having little energy: nearly every day 5. Poor appetite or overeating: more than half the days 6. Feeling bad about yourself - or that you are a failure or have let yourself or your family down: not at all 7. Trouble concentrating on things, such as reading the newspaper or watching television: not at all 8. Moving or speaking so slowly that other people could have noticed. Or the opposite - being so fidgety or restless that you have been moving around a lot more than usual: not at all 9. Thoughts that you would be better off or of hurting yourself in some way: not at all Total score: 8 Source: Developed by Drs. Kenton Jacobsen, Sydney Patel, Martinez Martin and colleagues, with an educational edward from [employer]. Binge Eating Scale Group 1 A. I don't feel self-conscious about my wt. or body size when I'm with others. B. I feel concerned about how I look to others, but it normally does not make me fell disappointed with myself C. I do get self-conscious about my appearance and wt. which makes me feel disappointed in myself. D. I feel very self-conscious about my wt. and frequently I feel intense shame and disgust for myself. I try to avoid social contacts because of my self-consciousness. Response Group 1: C Group 2 A. I don't have any difficulty eating slowly in the proper manner. B. Although I seem to gobble down foods, I don't end up feeling stuffed because of eating to much. C. At times, I tend to eat quickly and then, I feel uncomfortably full afterwards. D. I have the habit of bolting down my food, without really chewing it. When this happens I usually feel uncomfortably stuffed because I've eaten to much. Response Group 2: C Group 3 A. I feel capable to control my eating urges when I want to. B. I feel like I have failed to control my eating more than the average person. C. I feel utterly helpless when it comes to feeling in control of my eating urges. D. Because I feel so helpless about controlling my eating I have become very desperate about trying to get control. Response Group 3: B Group 4 A. I don't have the habit of eating when I'm bored. B. I sometimes eat when I'm bored, but often I'm able to get busy and get my mind off food. C. I have a regular habit of eating when I'm bored, but occasionally, I can use some other activity to get my mind off eating. D. I have a strong habit of eating when I'm bored. Nothing seems to help me breath the habit. Response Group 4: C Group 5 A. I'm usually physically hungry when I eat something. B. Occasionally, I eat something on impulse even though I really am not hungry. C. I have the regular habit of eating foods, that I might not really enjoy, to satisfy a hungry feeling even though physically, I don't need the food. D. Although I'm not physically hungry, I get a hungry feeling in my mouth that only seems to be satisfied when I eat a food, like sandwich, that fills my mouth. Sometimes, when I eat the food to satisfy my mouth hunger, I then spit the food out so I won't gain weight. Response Group 5: B Group 6 A. I don't feel any guilt or self-hate after I overeat. B. After I overeat, occasionally I feel guilt or self-hate. C. Almost all the time I experience strong guilt or self-hate after I overeat. Response Group 6: B Group 7 A. I don't lose total control of my eating when dieting even after periods when I overeat. B. Sometimes when I eat a forbidden food on a diet, I feel like I blew it and eat even more. C. Frequently, I have the habit of saying to myself, I've blown it now, why not go all the way, when I overeat on a diet. When that happens I eat more. D. I have a regular habit of starting a strict diets for myself but I break the diets by going on an eating binge. My life seems to be either a feast or famine. Response Group 7: A Group 8 A. I rarely eat so much food that I feel uncomfortably stuffed afterwards. B. Usually about once a month, I each such a quantity of food, I end up feeling very stuffed. C. I have regular periods during the month when I eat large amounts of food, either at mealtime or at snacks. D. I eat so much food that I regularly feel quite uncomfortable after eating and sometimes a bit nauseous. Response Group 8: B Group 9 A. My level of calorie intake does not go up very high or go down very low on a regular basis. B. Sometimes after I overeat, I will try to reduce my caloric intake to almost nothing to compensate for the excess calories I've eaten. C. I have a regular habit of overeating during the night. It seems that my routine is not to be hungry in the morning but overeat in the evening. D. In my adult years, I have had week-long periods where I practically starve myself. This follows periods when I overeat. It seems I live a life of either feast or famine. Response Group 9: B Group 10 A. I usually am able to stop eating when I want to. I know when enough is enough. B. Every so often, I experience a compulsion to eat which I can't seem to control. C. Frequently, I experience strong urges to eat which I seem unable to control, but at other times I can control my eating urges. D. I feel incapable of controlling urges to eat. I have a fear of not being able to stop eating voluntarily. Response Group 10: A Group 11 A. I don't have any problem stopping eating when I feel full. B. I usually can stop eating when I feel full but occasionally overeat leaving me feeling uncomfortably stuffed. C. I have a problem stopping eating once I start and usually I feel uncomfortably stuffed after I eat a meal. D. Because I have a problem not being able to stop eating when I want, I sometimes have to induce vomiting to relieve my stuffed feeling. Response Group 11: A Group 12 A. I seem to eat just as much when I'm with others, Family social gatherings as when I'm by myself. B. Sometimes, when I'm with other persons, I don't eat as much as I want to eat because I'm self-conscious about my eating. C. Frequently, I eat only a small amount of food when others are present, because I'm very embarrassed about my eating. D. I feel so ashamed about overeating that I pick times to overeat when I know no one will see me. I feel like a closet eater. Response Group 12: A Group 13 A. I eat three meals a day with only an occasional between meal snack. B. I eat 3 meals a day, but I also normally snack between meals. C. When I am snacking heavily, I get in the habit of skipping regular meals. D. There are regular periods when I seem to be continually eating, with no planned meals. Response Group 13: A Group 14 A. I don't think much about trying to control unwanted eating urges. B. At least some of the time, I feel my thoughts are pre-occupied with trying to control my eating urges. C. I feel that frequently I spend much time thinking about how much I ate or about trying not to eat anymore. D. It seems to me that most of my waking hours are pre-occupied by thoughts about eating or not eating. I feel like I'm constantly struggling not to eat. Response Group 14: C Group 15 A. I don't think about food a great deal. B. I have strong craving for food but they last only for brief periods of time. C. I have days when I can't seem to think about anything else but food. D. Most of my days seem to be pre-occupied with thoughts about food. I feel like I live to eat. Response Group 15: B Group 16 A. I usually know whether or not I'm physically hungry. I take the right portion of food to satisfy me. B. Occasionally, I feel uncertain about knowing whether or not I'm physically hungry. A these times it's hard to know how much food I should take to satisfy me. C. Even though I might know how many calories I should eat, I don't have any idea what is a normal amount of food for me. Response Group 16: B Binge Eating Score: 15 Score less than 17 Minimal Risk Score between 18-26 Moderate Risk Score between 27-46 High Risk Assessment & Plan Assessment & Plan (1) Anxiety: Code(s): F41.9 - Anxiety disorder, unspecified (2) Depression: Code(s): F32.A - Depression, unspecified Plan: R/O (3) Morbid obesity: Code(s): E66.01 - Morbid (severe) obesity due to excess calories Plan Patient reported that he was recently put on antidepressant by his doctor because of his answers on a questionnaire. He may be minimizing symptoms however it is unclear. Pt reported doing well in the program and no complaints or struggles. He reports that he is committed to surgery. Pt is cleared for surgery when ready. Telehealth Telehealth Location of provider rendering services: other Location of patient: address on file Patient Identification confirmed using: Name, : Yes Telehealth method: video Patient verbally consented to treatment: Yes Patient verbally consented to billing insurance company: Yes Patient informed of any privacy concerns related to visit: Yes Minutes spent on Phone/Video with Pt.: 35 Coding Level of Care Code Tele Psy Diag Eval (24477) Diagnoses Anxiety F41.9 Depression F32.A Morbid obesity E66.01 Time Spent (min) 35
== END 2023-03-05 16:30 ==
PROVIDERS: Visit Provider Counselor Mental Health
DX: F41.9 Anxiety disorder, unspecified (principal); F32.A Depression, unspecified; E66.01 Morbid (severe) obesity due to excess calories
CPT/HCPCS: 90791

== ENCOUNTER → 2023-03-05 16:00 | Outpatient (BNVA) | payer OTHER, SELFPAY | PROVIDERS: Visit Provider Counselor Mental Health | DX: F41.9 Anxiety disorder, unspecified (principal); F32.A Depression, unspecified; E66.01 Morbid (severe) obesity due to excess calories ==

== ENCOUNTER → 2023-03-19 07:37 | Outpatient (REF) | payer OTHER, SELFPAY ==
--- NOTE | 2023-03-19 07:38 | CA_ITS ---
Transthoracic Echocardiogram Patient (Last, First, Middle): Keyon Henao, Gender: Male Date of : 1985 Age: 37 Procedure Date: 03/19/2023 Procedure Type: Transthoracic Echocardiogram Location: OP Height: 180.34 cm Weight: 151.05 kg BSA: 2.62 m2 Heart Rate: 80 bpm BP: 112 / 62 mmHg Throw Out Clerk: SB Referring MD: Vinny Roland MD Symptoms: R94.31 - Abnormal electrocardiogram [ECG] [EKG] Study Quality: Adequate ECG Rhythm: Sinus Conclusions: - The left ventricular systolic function is low normal. The visually estimated ejection fraction is between 50-55%. - No obvious valvular pathology seen on this study. Findings Left Ventricle Normal left ventricular cavity size. There is normal left ventricular wall thickness. The left ventricular systolic function is low normal. The visually estimated ejection fraction is between 50-55%. There is no evidence of regional wall motion abnormalities. Diastolic function is normal for age. Right Ventricle Normal right ventricular cavity size and systolic function. Atria Both atria are normal in size. Aortic Valve There is a normal trileaflet aortic valve. There is no aortic valve stenosis. There is no aortic valve regurgitation. Mitral Valve The mitral valve appears normal. There is no mitral valve regurgitation. There is no mitral valve stenosis. Pulmonic Valve The pulmonic valve is likely normal. Tricuspid Valve Normal tricuspid valve structure. There is trace tricuspid valve regurgitation. There is no evidence of pulmonary hypertension. Great Vessels The aortic annulus, sinuses of valsalva, and asc aorta are normal in size. Venous The inferior vena cava was not well visualized. Pericardium/Pleural There is no evidence of pericardial effusion. Prior Study Comparison No prior study available for comparison. Recommendations, Care & Conclusions No obvious valvular pathology seen on this study. Measurements 2D Linear Measurements IVSd: 0.91 0.6-0.9/0.6-1.0 cm LVIDd: 4.77 3.9-5.3/4.2-5.9 cm LVIDd Index: 1.82 2.4-3.2/2.2-3.1 cm/m2 LVIDs: 3.35 2.0-3.6 cm LVPWd: 0.75 0.7-1.1 cm LA Diam: 3.90 2.7-3.8/3.0-4.0 cm LAIDs Index: 1.49 1.5-2.3 cm/m2 LV Mass: 163.48 67-162/88-224 g LV Mass Index: 62.40 43-95/49-115 g/m2 LVOT Diam: 2.40 3.0+(-)1.3 cm 2D Systolic Function EF 4C: 51.00 >55% EF 2C: 60.70 >55% EF BiP: 58.30 >55% Mitral Valve MV Pk E: 0.66 MV PK A: 0.58 MV Decel Time: 161.00 E/A: 1.10 E'Lateral: 12.30 E'Medial: 7.62 E/E' Med: 8.70 E/E' Lat: 5.40 PHT: 47.00 MVA PHT: 4.68 Decel Collier: 4.14 Aortic Valve AoV Pk Fausto: 0.90 AoV Pk Grad: 3.00 SHU: 3.68 LVOT LVOT Pk Fausto: 0.81 LVOT Mn Fausto: 0.50 LVOT VTI: 0.14 LVOT Pk Grad: 3.00 LVOT Mn Grad: 1.00 LVOT Diam: 2.40 LVOT Area: 4.52 Diastolic Function MV Pk E: 0.66 MV Pk A: 0.58 E/A: 1.10 E'Medial: 7.62 E/E' Med: 8.70 E' Laterial: 12.30 E/E' Lat: 5.40 Right Ventricle TAPSE (mm): 16.30 TVS' Fausto: 12.70 Great Vessels Aorta Sinus of Valsalva: 3.70 2.0-3.5 cm Ao Asc: 3.10 2.1-3.4 cm Pulmonary Valve PV Pk Fausto: 1.24 Peak PV Grad: 6.00 Updated in Other Vendor System with Status of Final Daniel Silvestre MD electronically signed on 03/19/2023 12:27:01 PM with status of Final
--- NOTE | 2023-03-19 07:38 | CA_ITS ---
Acquisition Time: 2023-03-19 09:00:35 Total Exercise Time: 00:05:09 Test Indications: ABN EKG Medications: SEE H Protocol: UGERO Max HR: 162 BPM 89% of Pred: 182 BPM Max BP: 170/090 mmHG Max Work Load: 7.0 METS Exercise stress test with exercise 5 min 9 sec of Guero protocol, achieving 87% MPHR, 7 METs, with moderate shortness of breath, no chest discomfort, without arrythmia, with normotensive response to exercise, without EKG changes meeting criteria for ischemia. Test reviewed with Dr Armstrong. Referred By: Vinny Roland Overread By: RAHEEM WATSON
== END ==
LOC: HO.CARD 07:37
PROVIDERS: Visit Provider Surgery
DX: R94.31 Abnormal electrocardiogram [ECG] [EKG] (principal)
CPT/HCPCS: 93017; 93306

== ENCOUNTER → 2023-03-19 07:38 | Outpatient (BNV) | payer OTHER, SELFPAY | PROVIDERS: Visit Provider Internal Medicine | DX: R06.02 Shortness of breath (principal); R94.31 Abnormal electrocardiogram [ECG] [EKG] | CPT/HCPCS: 93016; 93018; 93306 ==

== ENCOUNTER 2023-03-19 08:21 | Outpatient (AMB) | payer OTHER, SELFPAY ==
--- NOTE | 2023-03-19 09:44 | MHC.OFFVISWM ---
Intake VS Expanded 03/19/23 09:53 Height 5 ft 10.5 in Weight 332 lb 8 oz BMI 47.0 Body Fat % 52 Body Fat Mass 173 Fat Free Mass 159.8 Visceral Fat Rating 28 Body Water % 34.7 Body Water Mass 115.4 Basal Metabolic Rate/Score 1,935 Intake Visit Reasons: TV Follow Up SWL Allergies Penicillins Allergy (Mild, Verified 01/26/23 11:08) Rash HPI TV Follow Up SWL HPI Details Start time: 9.40am, End time: 10am ?I spent 15 minutes speaking with the patient on the phone plus an additional 5 minutes reviewing and updating records for a total of 20 minutes HPI Comments History of Present Illness Details Overall weight loss: 13.6lbs, or 3.93% TBWL is doing 2 Premier protein shakes (2 scoops in almond milk), one Zone Perfect protein bar, meal (12 forkfuls of protein and 12 forkfuls) Exercise: doing the bike for 300 calories x5-7/wk PFSH Medical History (Updated 02/23/23 @ 09:35 by Vinny Roland MD) Erectile dysfunction Hypothyroidism GERD (gastroesophageal reflux disease) Anxiety Depression Sleep apnea treated with continuous positive airway pressure (CPAP) Hyperlipidemia Hypertension Morbid obesity Surgical History (Updated 01/17/23 @ 07:48 by Paula Guillaume CMA) No history of previous surgery Family History (Updated 01/17/23 @ 07:50 by Paula Guillaume CMA) Mother No problems noted. Father Lung cancer Brain cancer Social History (Updated 01/17/23 @ 07:50 by Paula Guillaume CMA) Alcohol intake: never Patient Tobacco Use Status: Never used Tobacco Second Hand Smoke Exposure: No Assessment & Plan Assessment & Plan (1) Morbid obesity: Code(s): E66.01 - Morbid (severe) obesity due to excess calories Plan: 1. Continue same nutritional plan of 2 Premier protein shakes (2 scoops in almond milk), one Zone Perfect protein bar, meal (12 forkfuls of protein and 12 forkfuls) 2. Exercise: continue the bike for 5 days per week, but increase to 400 calories per work-out 3. Continue to send weight measurements weekly on Saturdays Telehealth Telehealth Location of provider rendering services: practice address Location of patient: address on file Patient Identification confirmed using: Name, : Yes Telehealth method: voice only Patient verbally consented to treatment: Yes Patient verbally consented to billing insurance company: Yes Patient informed of any privacy concerns related to visit: Yes Minutes spent on Phone/Video with Pt.: 20 Coding Level of Care Code Tele Est Pt Level 3 (82840) Diagnoses Morbid obesity E66.01 Time Spent (min) 20
[2023-03-19 09:53] VITALS: BMI 47.0
== END 2023-03-19 10:00 | disposition home or self-care (01) ==
LOC: HO.HBS 08:21
PROVIDERS: Visit Provider Surgery
DX: E66.01 Morbid (severe) obesity due to excess calories (principal)
CPT/HCPCS: 99213

== ENCOUNTER 2023-04-09 08:11 | Outpatient (AMB) | payer OTHER, SELFPAY ==
--- NOTE | 2023-04-09 09:00 | MHC.OFFVISWM ---
Intake VS Expanded 04/09/23 09:07 Height 5 ft 10.5 in Weight 327 lb 4 oz BMI 46.3 Body Fat % 50.8 Body Fat Mass 166.3 Fat Free Mass 161.2 Visceral Fat Rating 27 Body Water % 35.5 Body Water Mass 116.2 Basal Metabolic Rate/Score 1,948 Intake Visit Reasons: TV Follow Up SWL Allergies Penicillins Allergy (Mild, Verified 01/26/23 11:08) Rash HPI TV Follow Up SWL HPI Details Start time: 8.57am, End time: 9.14am ?I spent 12 minutes speaking with the patient on the phone plus an additional 5 minutes reviewing and updating records for a total of 17 minutes HPI Comments History of Present Illness Details Overall weight loss: 19lbs, or 5.48% Is doing 2 Premier protein shakes (2 scoops each in 8oz almond milk), 1-1.5 Zone Perfect protein bar and one meal (12 forks of protein and 12 forks of salad or vegetables) Exercise: stationary bike for 400 calories x3/week [facility] Medical History (Updated 02/23/23 @ 09:35 by Vinny Roland MD) Erectile dysfunction Hypothyroidism GERD (gastroesophageal reflux disease) Anxiety Depression Sleep apnea treated with continuous positive airway pressure (CPAP) Hyperlipidemia Hypertension Morbid obesity Surgical History (Updated 01/17/23 @ 07:48 by Paula Guillaume CMA) No history of previous surgery Family History (Updated 01/17/23 @ 07:50 by Paula Guillaume CMA) Mother No problems noted. Father Lung cancer Brain cancer Social History (Updated 01/17/23 @ 07:50 by Paula Guillaume CMA) Alcohol intake: never Patient Tobacco Use Status: Never used Tobacco Second Hand Smoke Exposure: No Assessment & Plan Assessment & Plan (1) Morbid obesity: Code(s): E66.01 - Morbid (severe) obesity due to excess calories Plan: 1. Change nutritional plan to 2 Premier protein shakes (1.5 scoops each in 8oz almond milk), 1-1.5 Zone Perfect protein bar and one meal (12 forks of protein and 12 forks of salad or vegetables) 2. Exercise: continue stationary bike for 400 calories x3/week. Try to include the bike the other 4 days as well for only 100 calories per day 3. Continue to send weight measurements weekly on Sundays Telehealth Telehealth Location of provider rendering services: practice address Location of patient: address on file Patient Identification confirmed using: Name, : Yes Telehealth method: voice only Patient verbally consented to treatment: Yes Patient verbally consented to billing insurance company: Yes Patient informed of any privacy concerns related to visit: Yes Minutes spent on Phone/Video with Pt.: 17 Coding Level of Care Code Tele Est Pt Level 2 (92678) Diagnoses Morbid obesity E66.01 Time Spent (min) 17
[2023-04-09 09:07] VITALS: BMI 46.3
== END 2023-04-09 09:15 | disposition home or self-care (01) ==
LOC: HO.HBS 08:11
PROVIDERS: Visit Provider Surgery
DX: E66.01 Morbid (severe) obesity due to excess calories (principal); Z68.42 Body mass index [BMI] 45.0-49.9, adult
CPT/HCPCS: G2252

== ENCOUNTER → 2023-04-09 08:11 | Outpatient (BNVA) | payer OTHER, SELFPAY | PROVIDERS: Visit Provider Surgery ==

== ENCOUNTER 2023-04-10 07:32 | Outpatient (REF) | payer OTHER, SELFPAY ==
--- NOTE | ~2023-04-10 | FL_ITS ---
EXAMINATION: XR FLUOROSCOPY UPPER GI WITH AIR CLINICAL INFORMATION: Preop evaluation prior to bariatric surgery COMPARISON: None TECHNIQUE: Fluoroscopic air contrast upper GI examination was performed utilizing standard techniques with thin and thick barium and effervescent granules. Numerous spot images were obtained. FINDINGS: Lateral cine images of the oropharynx and hypopharynx demonstrate normal swallow mechanism with normal epiglottic inversion and soft palate elevation. There is trace laryngeal penetration with thick barium above the vocal cords. No subglottic aspiration identified. No nasopharyngeal reflux present. Hypopharyngeal structures appear normal without evidence of mass or diverticulum. 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 Dual and single contrast images of the esophagus demonstrate normal caliber, contour, and mucosal pattern. No evidence of stricture, mass, or ulcerations identified. Esophageal peristalsis was normal. No definite evidence of hiatus hernia identified. Gastroesophageal reflux is seen up to the midesophagus. Dual contrast and single contrast images of the stomach demonstrated normal contour and mucosal pattern without evidence of mass, ulceration, or other abnormality. Contrast freely passed into the gastric antrum and duodenal bulb without delay. Single and air-contrast images of the duodenal bulb demonstrate no abnormality. The duodenal sweep has a normal appearance, course, and mucosal fold appearance. No malrotation. The imaged proximal jejunum has a normal fold pattern and caliber. FLUOROSCOPY TIME: 2 minutes 38 seconds Number of Spot Images: 8 Number of Cine: 10 DOSE AREA PRODUCT: 2596 uGy-m2 (microgray-meter squared) FL/FL upper GI w air IMPRESSION: 1. Trace laryngeal penetration with thick barium. No glottic or subglottic aspiration. 2. Moderate gastroesophageal reflux. This procedure was performed by David Jaimes PA-C, and supervised by Dr. Rueda
== END 2023-04-10 07:33 | disposition home or self-care (01) ==
LOC: HO.XRAY 07:32
PROVIDERS: Visit Provider Surgery
DX: E66.01 Morbid (severe) obesity due to excess calories (principal); K21.9 Gastro-esophageal reflux disease without esophagitis
CPT/HCPCS: 74246

== ENCOUNTER → 2023-04-10 07:33 | Outpatient (BNV) | payer OTHER, SELFPAY | PROVIDERS: Visit Provider Radiology Diagnostic Radiology | DX: Z01.818 Encounter for other preprocedural examination (principal); E66.01 Morbid (severe) obesity due to excess calories | CPT/HCPCS: 74246 ==

== ENCOUNTER 2023-05-15 10:05 | Outpatient (AMB) | payer OTHER, SELFPAY ==
--- NOTE | 2023-05-15 23:06 | A.OFFVIS_ITS ---
Intake VS Expanded 05/15/23 23:07 Height 5 ft 10.5 in Weight 321 lb 5 oz BMI 45.4 Body Fat % 60.9 Body Fat Mass 195.7 Fat Free Mass 125.7 Body Water % 30 Body Water Mass 96.4 Basal Metabolic Rate/Score 2,398 Intake Visit Reasons: TV Follow Up SWL Allergies Penicillins Allergy (Mild, Verified 01/26/23 11:08) Rash HPI TV Follow Up SWL HPI Details Start time: 2.30m, End time: 3pm ?I spent 25 minutes speaking with the patient on the phone plus an additional 5 minutes reviewing and updating records for a total of 30 minutes HPI Comments History of Present Illness Details Overall weight loss: 24.9lbs, or 7.19% Is doing 2 Premier protein shakes (2 scoops each in 8oz almond milk), 1-1.5 Zone Perfect protein bar and one meal (12 forks of protein and 12 forks of salad or vegetables) Exercise: stationary bike for 400 calories x3/week PFSH Medical History (Updated 02/23/23 @ 09:35 by Vinny Roland MD) Erectile dysfunction Hypothyroidism GERD (gastroesophageal reflux disease) Anxiety Depression Sleep apnea treated with continuous positive airway pressure (CPAP) Hyperlipidemia Hypertension Morbid obesity Surgical History (Updated 01/17/23 @ 07:48 by Paula Guillaume CMA) No history of previous surgery Family History (Updated 01/17/23 @ 07:50 by Paula Guillaume CMA) Mother No problems noted. Father Lung cancer Brain cancer Social History (Updated 01/17/23 @ 07:50 by Paula Guillaume CMA) Alcohol intake: never Patient Tobacco Use Status: Never used Tobacco Second Hand Smoke Exposure: No Assessment & Plan Assessment & Plan (1) Morbid obesity: Code(s): E66.01 - Morbid (severe) obesity due to excess calories Plan: 1. Plan for lap sleeve gastrectomy including upper GI endoscopy. All tests has been completed and reviewed and the patient is cleared for the surgery. ?If diaphragmatic or ventral hernias are present at time of surgery, these will be repaired laparoscopically as well. Risks and complications were discussed in detail including possible conversion to an open procedure, anastomotic leak, bleeding requiring transfusion, small bowel obstruction, , DVT and pulmonary embolism, cardiac, or pulmonary complications, as terminal manager complications such as anastomotic ulcer, insufficient weight loss and vitamin deficiencies. I emphasized the importance of close follow-up, adherence to instructions and good communication. So far he has proven to be an excellent communicator and very compliant with all our directions accomplishing a great weight loss. I believe that he is an excellent candidate and he is ready. 2. The patient participated in a structured preoperative lifestyle intervention program supervised by a physician the 3 months preceding the surgical procedure. The lifestyle intervention included a structured nutritional plan with a specific daily protein intake goal, an exercise plan with a 2000 calorie burn weekly goal, weekly behavior modification guidance and completion of eight 1- hour online nutritional classes and passing successfully the corresponding quizzes. Adherence to preoperative care plan was demonstrated by completing an extensive preoperative work-up. Program participation was demonstrated by completing 6 visits with our medical team and by sharing weekly weight measurements weekly for 4 consecutive months via an approved body composition scale. Compliance to the lifestyle intervention was demonstrated by achieving a 24.9lbs weight-loss or 7.2% total body weight loss (TBWL). No medications were used to achieve this weight loss. In our published experience an over 7% preoperative TBWL, achieved by meeting the diet and exercise goals of our program improves surgical outcomes, reduces the potential for surgical complications, and predicts a statistically significant higher weight loss up to 6 years postoperatively. 3. Continue same nutritional plan of 2 Premier protein shakes (2 scoops each in 8oz almond milk), 1-1.5 Zone Perfect protein bar and one meal (12 forks of protein and 12 forks of salad or vegetables) 4. Exercise: continue stationary bike for 400 calories and increase to 5/week 5. Continue to send weight measurements weekly on Sundays 6. Continue same nutritional plan of Telehealth Telehealth Location of provider rendering services: practice address Location of patient: address on file Patient Identification confirmed using: Name, : Yes Telehealth method: voice only Patient verbally consented to treatment: Yes Patient verbally consented to billing insurance company: Yes Patient informed of any privacy concerns related to visit: Yes Minutes spent on Phone/Video with Pt.: 30 Coding Level of Care Code Tele Est Pt Level 4 (97379) Diagnoses Morbid obesity E66.01 Time Spent (min) 30
[2023-05-15 23:07] VITALS: BMI 45.4
== END 2023-05-15 23:15 | disposition home or self-care (01) ==
LOC: HO.HBS 10:05
PROVIDERS: Visit Provider Surgery
DX: E66.01 Morbid (severe) obesity due to excess calories (principal)
CPT/HCPCS: 99214

== ENCOUNTER → 2023-05-15 10:05 | Outpatient (BNVA) | payer OTHER, SELFPAY | PROVIDERS: Visit Provider Surgery ==

== ENCOUNTER 2023-06-18 08:11 | Outpatient (AMB) | payer OTHER, SELFPAY ==
--- NOTE | 2023-06-18 09:33 | A.OFFVIS_ITS ---
VS Expanded 06/18/23 09:40 Height 5 ft 10.5 in Weight 313 lb 9 oz BMI 44.4 Body Fat % 59 Body Fat Mass 185.2 Fat Free Mass 128.6 Body Water % 30 Body Water Mass 94.1 Basal Metabolic Rate/Score 2,363 Intake Visit Reasons: TV Pre Op LSG 06/26/23 Allergies Penicillins Allergy (Mild, Verified 06/18/23 09:33) Rash Medication List - Last Reconciled 06/18/23 by Vinny Roland MD bupropion HCl XL 150 mg PO QAM buspirone 15 mg PO BID famotidine 20 mg PO BEDTIME icosapent ethyl (Vascepa) 2 grams PO BID levothyroxine 150 mcg PO DAILY lisinopril 20 mg PO DAILY metformin ER 500 mg PO DAILY ondansetron 4 mg PO Q12H ondansetron 4 mg PO Q12H pantoprazole 40 mg PO DAILY pantoprazole 40 mg PO DAILY polyethylene glycol 3350 (Miralax) 17 grams PO DAILY sucralfate 10 mL PO BID sucralfate 10 mL PO BID tadalafil 5 mg PO DAILY HPI HPI TV Pre Op LSG 06/26/23: Details: Start time: 9.25am, End time: 9.51am ?I spent 21 minutes speaking with the patient on the phone plus an additional 5 minutes reviewing and updating records for a total of 26 minutes HPI Comments Details: Overall weight loss: 32.5lbs, or 9.38% TBWL Is doing 2 Premier shakes (2 scoops in almond milk), 1.5 Zone Perfect protein bars and one meal (12 forks each) Exercise: bike for 7775-2526 calories per week PFSH Medical History (Updated 02/23/23 @ 09:35 by Vinny Roland MD) Erectile dysfunction Hypothyroidism GERD (gastroesophageal reflux disease) Anxiety Depression Sleep apnea treated with continuous positive airway pressure (CPAP) Hyperlipidemia Hypertension Morbid obesity Surgical History (Updated 01/17/23 @ 07:48 by Paula Guillaume CMA) No history of previous surgery Family History (Updated 01/17/23 @ 07:50 by Paula Guillaume CMA) Mother No problems noted. Father Lung cancer Brain cancer Social History (Updated 01/17/23 @ 07:50 by Paula Guillaume CMA) Alcohol intake: never Patient Tobacco Use Status: Never used Tobacco Second Hand Smoke Exposure: No Telehealth Telehealth Telehealth Platform: Telephone Location of provider rendering services: practice address Location of patient: address on file Patient Identification confirmed using: Name, : Yes Telehealth method: voice only Patient verbally consented to treatment: Yes Patient verbally consented to billing insurance company: Yes Patient informed of any privacy concerns related to visit: Yes Minutes spent on Phone/Video with Pt.: 26 Assessment & Plan Assessment & Plan (1) Morbid obesity: Code(s): E66.01 - Morbid (severe) obesity due to excess calories Category: Medical Plan: 1. Plan for lap sleeve gastrectomy including upper GI endoscopy. All tests has been completed and reviewed and the patient is cleared for the surgery. ?If diaphragmatic or ventral hernias are present at time of surgery, these will be repaired laparoscopically as well. Risks and complications were discussed in detail including possible conversion to an open procedure, anastomotic leak, bleeding requiring transfusion, small bowel obstruction, , DVT and pulmonary embolism, cardiac, or pulmonary complications, as group home complications such as anastomotic ulcer, insufficient weight loss and vitamin deficiencies. I emphasized the importance of close follow-up, adherence to instructions and good communication. So far he has proven to be an excellent communicator and very compliant with all our directions accomplishing a great weight loss. I believe that he is an excellent candidate and he is ready. 2. Preop prescriptions were provided and explained the purpose of each one. Need to be purchased preop. Start Pantoprazole now as you get it from the pharmacy, 1 pill per day. Sucralfate and Zofran are for after surgery as needed. 3. Bowel prep: please do 7 packets ?of Miralax mixing each one with a an 8oz glass of water, crystal light, gatorade zero, or propel ?on 06/24/23 and the same amount on 06/25/23. The Miralax you begin with one packet at a time in 8oz water or crystal light, gatorade zero, or propel ?as early in the day as you can and you do them back to back until you finish them. Continue the protein shakes during? the bowel prep. 4. Needs to purchase 1oz medicine cups . 5. Needs to purchase Children's liquid Tylenol for postop pain control. 6. He needs to stop the Tadalafil as of today. Avoid aspirin, motrin, Advil, Aleve, Ibuprofen, Naproxyn. Tylenol is OK. 7. He needs to purchase the Celebrate 4:1 protein shakes from the hospital's gift shop. 8. Will do basic preop blood work-up any day between Sunday01/30/22 and Sunday02/03/22 fasting for 12 hours and is scheduled to see the Anesthesiologist prior to the day of surgery. 9. Importance of adherence to postop folllow-up and recommendations was underscored and he understands that. 10. Continue to avoid food and bars and continue with 2 Premier protein shakes (ONE scoop EACH in 8oz almond milk) at 5am-7am and 8am-10am and three more Premier protein shakes with TWO scoop EACH in 8oz of almond milk at 11am-1pm, 2pm-4pm and 5pm-7pm. 11. No soups, broths or V8 12. The patient's?medical?history has been reviewed and they are considered low risk for post op DVT and therefore DVT prophylaxis is not considered necessary. Travel after surgery was reviewed. The patient has not disclosed any travel plans during the first 30 days after surgery and they have been advised that within the first 30 days after surgery any bus, plane, train or car travel over 2 hours in duration is contraindicated due to the possibility of developing blood clots from immobility. Any travel, needs to include periods of ambulation of 10 minutes in duration every 2 hours.? Patient was instructed to discuss any plans for travel during this period with their bariatric surgeon.? 13. Use your CPAP daily and bring it to the hospital with your mask 14. Please take at the day of surgery the following medications: Only the Lisinopril based on the following parameters: Check your blood pressure daily in the morning. If your blood pressure is: Less than 120/70: take no Lisinopril 121/71 to 135/85: take HALF Lisinopril pill Over 136/86: take the whole Lisinopril pill 15. Absolutely no smoking or vaping, or marijuana until the surgery and for at least the first 4 weeks. Only nicotine patches are allowed. 16. Send me weight measurements on Sunday and then on Sunday06/26/23, the day of surgery before you go to the hospital. 17. Avoid any steroids by mouth for any reason. Let me know if someone prescribes them to you 18. These instructions supersede anything else you read in the handbook, anything you watched in videos or classes or you were told by any other provider. If there is any conflict, you follow the above instructions and nothing else. Orders: Orders Hemoglobin A1c Today E66.01 - Morbid (severe) obesity due to excess calories Type and Screen Today E66.01 - Morbid (severe) obesity due to excess calories Comprehensive Met. Panel Today E66.01 - Morbid (severe) obesity due to excess calories TSH reflex Free T4 Today E66.01 - Morbid (severe) obesity due to excess calories Prothrombin Time INR Today E66.01 - Morbid (severe) obesity due to excess calories Lipid Panel Today E66.01 - Morbid (severe) obesity due to excess calories C Reactive Protein Today E66.01 - Morbid (severe) obesity due to excess ca lories Partial Thromboplastin Time Today E66.01 - Morbid (severe) obesity due to excess calories Complete Blood Count Auto Diff Today E66.01 - Morbid (severe) obesity due to excess calories Insulin Today E66.01 - Morbid (severe) obesity due to excess calories Medications: New sucralfate 10 mL PO BID 600 mL 2RF K21.9 - Gastro-esophageal reflux disease without esophagitis ondansetron Only take one every 12 hours as needed if you have nausea 4 mg PO Q12H 20 tabs 0RF nausea and vomiting R11.0 - Nausea ondansetron Only take one every 12 hours as needed if you have nausea 4 mg PO Q12H 20 tabs 0RF nausea and vomiting R11.0 - Nausea polyethylene glycol 3350 (Miralax) Mix each packet with 8oz of water, Crystal light, or Gatorade zero, or Propel and do 7 packets on 06/24/23 and another 7 packets on 06/25/23 17 grams PO DAILY 14 ea 0RF Z01.818 - Encounter for other preprocedural examination pantoprazole 40 mg PO DAILY 90 tabs 0RF K21.9 - Gastro-esophageal reflux disease without esophagitis sucralfate 10 mL PO BID 600 mL 2RF K21.9 - Gastro-esophageal reflux disease without esophagitis
[2023-06-18 09:40] VITALS: BMI 44.4
== END 2023-06-18 09:52 | disposition home or self-care (01) ==
LOC: HO.HBS 08:11
PROVIDERS: Visit Provider Surgery
DX: E66.01 Morbid (severe) obesity due to excess calories (principal)
CPT/HCPCS: 99214

== ENCOUNTER → 2023-06-18 08:11 | Outpatient (BNVA) | payer OTHER, SELFPAY | PROVIDERS: Visit Provider Surgery ==

== ENCOUNTER → 2023-06-22 08:04 | Outpatient (BNVA) | payer OTHER, SELFPAY | PROVIDERS: Visit Provider Physician Assistant Surgical ==

== ENCOUNTER 2023-06-26 07:20 | Inpatient (IN) | payer OTHER, SELFPAY ==
[2023-06-19 09:38] VITALS: BMI 43.8
[2023-06-22 09:00] LABS: MANUAL DIFF FLAG NO
[2023-06-22 09:36] LABS: Basophils Absolute Auto 0.1 X10*3/uL (0.0-0.2); Basophils Percent Auto 0.6 % (0-2); Eosinophils Absolute Auto 0.1 X10*3/uL (0.0-0.4); Eosinophils Percent Auto 1.4 % (0-4); Hematocrit 45.3 % (42.0-52.0); Hemoglobin 15.7 g/dl (14.0-18.0); Imm Gran Abs Auto 0.02 X10*3/uL (0.00-0.03); Imm Gran Pct Auto 0.2 % (0.0-0.4); Lymphocytes Absolute Auto 2.9 X10*3/uL (1.2-4.9); Lymphocytes Percent Auto 31.4 % (20-40); Mean Corpuscular HGB Conc 34.7 g/dl (31.0-36.0); Mean Corpuscular Hemoglobin 29.5 pg (27.0-33.0); Mean Platelet Volume 10.1 fL (9.4-12.4); Monocytes Absolute Auto 0.5 X10*3/uL (0.1-1.2); Monocytes Percent Auto 5.6 % (2-11); Neutrophils Absolute Auto 5.7 x10*3/uL (2.0-8.3); Neutrophils Percent Auto 60.8 % (45-73); Platelet Count 406 X10*3/uL (160-400); Red Blood Count 5.33 X10*6/uL (4.60-5.80); Red Cell Distribution Width 13.4 % (11.0-16.0); White Blood Count 9.3 X10*3/uL (4.8-10.8)
[2023-06-22 09:42] LABS: Estimated Average Glucose 108 mg/dL; Hemoglobin A1c % 5.4 % (<6.0)
[2023-06-22 09:45] LABS: INTERNATIONAL NORM RATIO 1.1 (0.9-1.1); Prothrombin Time 13.6 SEC (11.1-13.3)
[2023-06-22 09:47] LABS: Partial Thromboplastin Time 33.9 SEC (26.0-36.8)
[2023-06-22 10:22] LABS: Alanine Aminotransferase 67 U/L (0-40); Albumin Level 4.7 g/dL (3.5-5.0); Alkaline Phosphatase 65 U/L (39-117); Anion Gap 14 (12-20); Aspartate Amino Transferase 32 U/L (5-37); Bilirubin Total 0.7 mg/dL (0.0-1.0); Blood Urea Nitrogen 12 mg/dL (9-16); C Reactive Protein 1.25 mg/dL (< or = 0.50); Calcium 9.9 mg/dL (8.4-10.2); Carbon Dioxide 25 mmol/L (22-29); Chloride 102 mmol/L (96-108); Cholesterol 216 mg/dL (<200); Creatinine Clr Calc Pharmacy 149.1; Estimated Glomerular Filt Rate > 60; Glucose Random 93 mg/dL (60-115); HDL Cholesterol 26 mg/dL (>40); LDL Cholesterol Calculated 146 mg/dL (<100); Potassium 4.4 mmol/L (3.3-5.1); Sodium 137 mmol/L (135-145); Total Protein 8.2 g/dL (6.5-8.0); Triglycerides 224 mg/dL (<150)
[2023-06-22 10:28] LABS: Insulin 18 uU/mL (2-29); TSH reflex Free T4 16.53 uIU/mL (0.32-4.0)
[2023-06-22 11:45] LABS: Free T4 (Free Thyroxine) 0.93 ng/dL (0.71-1.85)
--- NOTE | 2023-06-22 14:44 | P.CONAN_ITS ---
Documented by User: Rachelle Valencia NP 06/22/23 14:46 HPI - Anesthesia Eval Consult details Narrative: 37yo M for Gastrectomy Sleeve,EGD,possible Diaphragmatic hernis,possible Ventral Hernia,Possible Open PMFSH Active Problems Active Problems: All Active Problems Abnormal EKG (Acute) Esophagitis (Acute) Erectile dysfunction (Acute) Hypothyroidism (Acute) GERD (gastroesophageal reflux disease) (Acute) Anxiety (Acute) Depression (Acute) Sleep apnea treated with continuous positive airway pressure (CPAP) (Acute) Hyperlipidemia (Acute) Hypertension (Acute) Morbid obesity (Acute) Past Medical History Medical History Diabetes Erectile dysfunction Hypothyroidism GERD (gastroesophageal reflux disease) Anxiety Depression Sleep apnea treated with continuous positive airway pressure (CPAP) Hyperlipidemia Hypertension Morbid obesity Family History Family History Mother No problems noted. Father Lung cancer Brain cancer Surgical History Surgical History No history of previous surgery Social History Social History Are you a primary director day care center to a significant other at home: No Do you presently have visiting nurse or other home services: No Alcohol intake: never Patient Tobacco Use Status: Never used Tobacco Second Hand Smoke Exposure: No Use of substances other than those prescribed or required for medical reasons: No Have you been hit, kicked, punched, or otherwise hurt by someone within the past year? If so, by whom?: No Are you DNR?: No Advance Directives: No Advance Directives Information Provided: No Advance Directives on File: No Recently lost weight without trying: No How much weight loss: 2-13 pounds Eating poorly because of decreased appetite: No Nutrition screen score: 1 Nutrition Risks: No Nutritional Risk Poor oral hygiene: Yes (full upper denture and partial lower denture) Meds Allergies Allergy/AdvReac Type Severity Reaction Status Date / Time Penicillins Allergy Mild Rash Verified 06/26/23 07:22 Home Medications ?Medication ?Instructions ?Recorded ?Confirmed ?Last Taken ?Type bupropion HCl 150 mg 24 hr tablet, 150 mg PO QAM 01/17/23 06/26/23 06/25/23 History extended release buspirone 15 mg tablet 15 mg PO BID 01/17/23 06/26/23 06/25/23 History icosapent ethyl 1 gram capsule 1 g PO BID 01/17/23 06/26/23 06/25/23 History (Vascepa) levothyroxine 150 mcg capsule 150 mcg PO DAILY 01/17/23 06/26/23 06/25/23 History lisinopril 20 mg tablet 20 mg PO DAILY 01/17/23 06/26/23 06/25/23 History metformin 500 mg tablet,extended 500 mg PO DAILY 01/17/23 06/26/23 06/25/23 History release 24 hr tadalafil 5 mg tablet 5 mg PO DAILY PRN Sexual Activity 01/17/23 06/26/23 06/19/23 History multivitamin 1 tab PO DAILY 06/19/23 06/26/23 06/25/23 History Exam Height,Weight and Vital Signs: Height 5 ft 11 in Weight 142.428 kg Pertinent Lab Results Pertinent Lab Results: Laboratory Tests 06/22/23 06/22/23 08:58 09:00 WBC 9.3 RBC 5.33 Hgb 15.7 Hct 45.3 MCV 85.0 MCH 29.5 MCHC 34.7 RDW 13.4 Plt Count 406 H MPV 10.1 Immature Gran % (Auto) 0.2 Neut % (Auto) 60.8 Lymph % (Auto) 31.4 Loup % (Auto) 5.6 Eos % (Auto) 1.4 Baso % (Auto) 0.6 Lymph # (Auto) 2.9 Loup # (Auto) 0.5 Eos # (Auto) 0.1 Baso # (Auto) 0.1 Abs Immat Gran (auto) 0.02 Absolute Neuts (auto) 5.7 Absolute Nucleated RBC 0.000 Nucleated RBC % (auto) 0.0 PT 13.6 H INR 1.1 APTT 33.9 Sodium 137 Potassium 4.4 Chloride 102 Carbon Dioxide 25 Anion Gap 14 BUN 12 Creatinine 0.97 Estim Creat Clear Calc 149.1 Estimated GFR > 60 Random Glucose 93 Estimat Average Glucose 108 Hemoglobin A1c % 5.4 Insulin Level 18 Calcium 9.9 Total Bilirubin 0.7 AST 32 ALT 67 H Alkaline Phosphatase 65 C-Reactive Protein 1.25 H Total Protein 8.2 H Albumin 4.7 Triglycerides 224 H Cholesterol 216 H LDL Cholesterol, Calc 146 H HDL Cholesterol 26 L TSH 16.53 H Free T4 0.93 Blood Type A Positive Antibody Screen NEGATIVE Narrative Narrative: EKG 01/2023 Vent. Rate : 080 BPM Atrial Rate : 080 BPM P-R Int : 150 ms QRS Dur : 086 ms QT Int : 380 ms P-R-T Axes : 017 015 062 degrees QTc Int : 438 ms Normal sinus rhythm Nonspecific T wave abnormality Abnormal ECG No previous ECGs available ECHO 02/2023 Conclusions: - The left ventricular systolic function is low normal. The visually estimated ejection fraction is between 50-55%. - No obvious valvular pathology seen on this study. Exercise Stress 02/2023 Protocol: GUERO Max HR: 162 BPM 89% of Pred: 182 BPM Max BP: 170/090 mmHG Max Work Load: 7.0 METS Exercise stress test with exercise 5 min 9 sec of Guero protocol, achieving 87% MPHR, 7 METs, with moderate shortness of breath, no chest discomfort, without arrythmia, with normotensive response to exercise, without EKG changes meeting criteria for ischemia. Test reviewed with Dr Armstrong. Assessment and Plan Assessment Anesthesia Assessment: Chart Reviewed Documented by User: Sara Sales MD 06/26/23 10:06 COUNTS INCLUDE 234 BEDS AT THE [facility] Past Medical History Medical History Diabetes Erectile dysfunction Hypothyroidism GERD (gastroesophageal reflux disease) Anxiety Depression Sleep apnea treated with continuous positive airway pressure (CPAP) Hyperlipidemia Hypertension Morbid obesity Family History Family History Mother No problems noted. Father Lung cancer Brain cancer Surgical History Surgical History No history of previous surgery History of Problems with Anesthesia: No Social History Social History Are you a primary director day care center to a significant other at home: No Do you presently have visiting nurse or other home services: No Alcohol intake: never Patient Tobacco Use Status: Never used Tobacco Second Hand Smoke Exposure: No Use of substances other than those prescribed or required for medical reasons: No Have you been hit, kicked, punched, or otherwise hurt by someone within the past year? If so, by whom?: No Are you DNR?: No Advance Directives: No Advance Directives Information Provided: No Advance Directives on File: No Recently lost weight without trying: No How much weight loss: 2-13 pounds Eating poorly because of decreased appetite: No Nutrition screen score: 1 Nutrition Risks: No Nutritional Risk Poor oral hygiene: Yes (full upper denture and partial lower denture) Meds Allergies Allergy/AdvReac Type Severity Reaction Status Date / Time Penicillins Allergy Mild Rash Verified 06/26/23 07:22 Home Medications ?Medication ?Instructions ?Recorded ?Confirmed ?Last Taken ?Type bupropion HCl 150 mg 24 hr tablet, 150 mg PO QAM 01/17/23 06/26/23 06/25/23 History extended release buspirone 15 mg tablet 15 mg PO BID 01/17/23 06/26/23 06/25/23 History icosapent ethyl 1 gram capsule 1 g PO BID 01/17/23 06/26/23 06/25/23 History (Vascepa) levothyroxine 150 mcg capsule 150 mcg PO DAILY 01/17/23 06/26/23 06/25/23 History lisinopril 20 mg tablet 20 mg PO DAILY 01/17/23 06/26/23 06/25/23 History metformin 500 mg tablet,extended 500 mg PO DAILY 01/17/23 06/26/23 06/25/23 History release 24 hr tadalafil 5 mg tablet 5 mg PO DAILY PRN Sexual Activity 01/17/23 06/26/23 06/19/23 History multivitamin 1 tab PO DAILY 06/19/23 06/26/23 06/25/23 History Exam Airway Mallampati Class: III TM Dist: >3cm Neck ROM: Full Denture: Upper Partial: Lower Loose/Missing/Broken Teeth: Yes, Upper and Lower Heart: RRR Lungs: CTA Assessment and Plan Assessment Anesthesia Assessment: Anesthesia Plan Discussed Final Anesthetic Review History of Problems with Anesthesia: No NPO: Yes ASA Class: III Final Preanesthetic Review: Meds/Allgs Chart Reviewed, Consent Obtained/Reviewed and Anes Risks/Benef Reviewed Patient Risk: Intermediate Procedure Risk: Intermediate Anesthetic Plan Anesthetic Plan: GA Disposition: Standard PACU
[2023-06-26] VITALS (10 sets, daily range): BP systolic 116–153; BP diastolic 66–97; PULSE 76–106; RESP 14–18; TEMP 36.1–36.6; O2SAT 93–97; BMI 43.1; BMI 47.3
[2023-06-26] MEDS: Aprepitant 32 MG/4.4 ML VIAL IVPUSH (07:45)
[2023-06-26] MEDS: Lactated Ringers 1,000 ML 100 ML IVCONT ×2 (07:46→16:44)
[2023-06-26] MEDS: Lactated Ringers 1,000 ML 999 ML IV (07:46)
[2023-06-26 07:53] LABS: Glucose, Whole Blood 108 mg/dL (60-115)
--- NOTE | 2023-06-26 08:19 | PHA.MEDREC ---
Pharmacy Consult ? Medication Reconciliation RN has completed the medication reconciliation, PHARMACY REVIEWED.
--- NOTE | 2023-06-26 10:59 | MHC.SHP ---
Pre-Procedural Eval Section A - 24 Hr Update-Section A only Date of Service: 06/26/23 The patient is an INPATIENT: Yes The patient has been examined within 24 hours of the surgical procedure. The History & Physical has been completed within 30 days and I have reviewed it.: Yes Section B - Complete if H&P > 30 days Chief Complaint: morbid obesity Relevant Family History (Specify if Yes): No Relevant Social History: None Present Medications: None Medical History: No relevant PMH History of Previous Operations: No relevant previous surgery Allergies: Allergies Allergy/AdvReac Type Severity Reaction Status Date / Time Penicillins Allergy Mild Rash Verified 06/26/23 07:22 Review of Systems Sugical H&P ROS: Negative: Constitution, Cardiovascular, Respiratory, Neurological, Psychiatric, Hem-Onc, Allergic/Immunologic, Gastrointestinal, Genitourinary, Musculoskeletal, Integumentary, Endocrine and Eyes/Ears/Nose/Throat Exam Surgical H&P Exam: Normal: HEENT, Normal: Heart, Normal: Lungs, Normal: Extremities, Normal: Abdomen, Normal: Skin and Normal: Neurological Plan Diagnosis/Plan: Unchanged I have reviewed the history and physical and performed a pertinent physical examination on my patient. No changes have occurred unless specified. Time Spent With Patient Time: Total time managing care of this patient today ____ minutes.
--- NOTE | 2023-06-26 11:11 | PM.OP ---
Brief Operative Note Date of Service: 06/26/23 Pre-op diagnosis: Morbid obesity with comorbidities (see below) Post-op diagnosis: same (abdominal adhesions) Procedure: INITIAL PATIENT BMI ON PRESENTATION AT OUR OFFICE: 49 kg/m2 LAST BMI BEFORE SURGERY: 43.9 kg/m2 COMORBIDITIES: hypertension, non-insulin dependent diabetes, sleep apnea on CPAP, hypothyroidsism, depression, hyperlipidemia, GERD, erectile dysfunction, anxiety ?The patient presented to the Weight Management Program with significant obesity that was negatively impacting the patient's comorbidities as listed above.? The program is a phased program with a special focus on preoperative medical weight management to promote substantial weight loss and prepare the patients for the second phase of the program: bariatric surgery. The patient participated in an intensive weekly lifestyle ?intervention and exercise program during which the patient ?has lost between the initial office visit and the last preoperative visit 32.5 lbs, or 9.38% of initial actual body weight. It was deemed appropriate for the patient to now have bariatric surgery. In light of the current Covid-19 pandemic and the well documented strong association of obesity and increased risk of worse outcomes if infected with Covid-19 (REFERENCES:https://pubmed.ncbi.nlm.nih.gov/13651198/,?https://pubmed.ncbi.nlm.nih.gov/92085473/), any delay in undergoing bariatric surgery may lead to the patient's worsening health condition and increased?risk of more severe Covid-19 disease if infected. In addition a recent?study from [facility] published in [employer] on 02/21/2021 ([email or web address]) found that, among patients with obesity, substantial weight loss achieved with surgery was associated with improved outcomes of COVID-19 infection. The findings suggest that obesity can be a modifiable risk factor for the severity of COVID-19 infection. In addition, the patient met the BMI-criteria for bariatric surgery based on the BMI on initial presentation. The patient should not be penalized for achieving such weight loss because ?it is not sustainable long-term without surgical intervention and it was achieved in preparation for bariatric surgery ?under my direction and based on my published research ([email or web address] and?https://www.soard.org/article/[email or web address])16521-X/pdf) ?that a 10% preoperative weight loss improves long-term weight loss after surgery and reduces perioperative complications.? Insurance carriers such as [facility] have endorsed my recommendations ?and have included in their policies criteria to include a 10% preoperative weight loss requirement. PROCEDURE: Esophago-gastroscopy, laparoscopic lysis of adhesions, laparoscopic sleeve gastrectomy and laparoscopic gastropexy. Very dificult case due to large amount of intra-abdominal fat that prolonged the operation signififantly with a total operative time of 2 hours and 40 minutes. INDICATIONS: This is a 37 year-old male who was electively scheduled for laparoscopic, possibly open sleeve gastrectomy. The risks and complications of the procedure were discussed with the patient in advance, particularly the possibility of ; pulmonary embolism; staple line leak; bleeding; GERD; cardiac, pulmonary, or renal complications; as well as long-term problems such as insufficient weight loss, vitamin deficiency, strictures, or ulcers. The patient understood all the risks, and was in agreement to proceed with surgery. DESCRIPTION OF PROCEDURE: After informed consent was obtained from the patient, the patient was given preoperative antibiotics, and was transferred to the operating room. After successful induction of general anesthesia, pneumatic compression devices were placed on both lower extremities. An upper endoscopy was performed next. The oropharynx and esophagus appeared to be within normal limits. There was no diaphragmatic hernia present consistent with the findings of the preoperative upper GI. The stomach was entered. Then after all fluid and air were suctioned and the stomach was fully decompressed, the scope was withdrawn and secured in the mid esophagus. The patient was then prepped and draped in the usual sterile manner, and abdominal access was established at the right upper quadrant with the Fox technique. A 12 mm blunt port was inserted, and the abdomen was insufflated with CO2 to a pressure of 15 mmHg. Under direct visualization, additional ports were placed, specifically two 5 mm Versi-step ports to the left upper quadrant, and a 5 mm Versi-Step port to the right upper quadrant. 1% lidocaine plain was used to infiltrate all port sites as well as all fascia defects. Following that, the patient was placed in a steep reverse Trendelenburg position. An additional 5 mm port was placed to the right flank for the Mediflex retractor that was used to retract the left lobe of the liver. The gastro-esophageal fat pad was opened with the ultrasonic device (Thunderbeat, Olympus) and the anterior esophagus and hiatus were exposed. The angle of His was opened with the ultrasonic device the fundus of the stomach from any diaphragmatic and splenic attachments. I then opened the gastrocolic ligament between the transverse colon and the greater curvature of the stomach with the ultrasonic device to enter the lesser sac and facilitate the ligation of the short gastric vessels. I started at a mid-point along the greater curvature and using the Thunderbeat, all short gastric vessels were divided all the way to the angle of His until the left foreign was completely dissected at its entirety. I then divided the gastro-colic ligament distally to a distance of about 3-4 cm proximal to the pylorus. There were extensive congenital adhesions between the pancreas and posterior gastric wall. Those were lysed completely with the ultrasonic device. Adhesiolysis took approximately 45 min to complete. The stomach was then divided transversely with two Endo NEYDA-45 purple and four NEYDA-60 articulating purple loads using the SIGNIA stapler and loads. Every effort was made that the gastric sleeve had a tubular shape and an even caliber throughout. Once the sleeve resection was completed, the staple line of the gastric sleeve was reinforced with Hemoclips. The resected stomach was retrieved without difficulty from the Fox port. A gastropexy was then performed in order to prevent postoperative GERD and partial gastric volvulus. Several interrupted 2.0 Surgidac sutures were placed between the sleeve's staple line and the previously divided greater omentum and gastro-colic ligament using the Endo-Stitch device. ?An upper endoscopy was performed. There was no narrowing at the GE junction. The scope was easily advanced all the way to the pylorus which was clearly visualized. There was no narrowing anywhere and the sleeve's caliber was even throughout. The sleeve's staple line was inspected and there was no evidence of ischemia, bleeding or dehiscence. At that point the gastroscope was withdrawn from the patient?s mouth while we were decompressing the bowel and the stomach from any remaining air. I looked into the lesser sac to see how the sleeve was situating and it was situating well. There was no bleeding from the staple line, spleen, or short gastric vessels. The Mediflex retractor was removed, and the undersurface of the liver was inspected and there was no bleeding. The patient was placed in supine position. I closed the fascial defect of the 12 mm port site with a figure of eight #1 Polysorb suture. Then 30cc Ropivacaine plain with 10 mg of Dexamethasone were used to infiltrate the fascial closure as well as all skin incisions. A total of 5ml Zynrelef was applied in the Fox wound. At this point, the abdomen was deflated, all ports were removed under direct vision, and no bleeding was noted from any of the port sites. The skin incisions were irrigated with saline and were closed with 4-0 absorbable monofilament sutures. Steri-Strips and OpSites were used to cover all incisions. The patient was extubated and was transferred in stable condition to the recovery room for further care. I was present and performed all guzman parts of the procedure. Ms. Winn was the first aid teacher. There were no residents to assist with this case. Edward Roland MD, PhD, FACS Surgeon: Vinny Roland MD Anesthesia: GETA, local and other (TAP block and 5ml Zynrelef) Was an Patrol Agent used for this Procedure?: No Patrol Agent: Latoya Winn Estimated blood loss (mL): 10 IV fluids (mL): 3,000 Urine output (mL): 0 Pathology: other (Stomach) Condition: stable Disposition: PACU
--- NOTE | 2023-06-26 11:14 | P.PNGS_ITS ---
Subjective Subjective Date of Service: 06/27/23 Interval history: Feels well. Mild incisional pain. He is tolerating phase 1 bariatric diet Physical Exam 2 Vital Signs: Vital Signs: BMI result Body Mass Index 43.1 GI: Inspection: Yes normal to inspection, Yes incision (clean, dry and intact) and Yes obesity Palpation (GI): Soft to palpation Extrem: Right lower extremity: normal to inspection (no calf tenderness) L eft lower extremity: normal to inspection (no calf tenderness) Objective Data Active Medications Albuterol Sulfate (Albuterol Sulfate (0.083%) 2.5 Mg/3 Ml Vial.Neb) 2.5 mg INHALE ONCE PRN PRN Reason: Wheezing Stop: 06/26/23 16:07 Fentanyl (Fentanyl Citrate/Pf 100 Mcg/2 Ml Vial) 25 mcg IVPUSH Q5M PRN; Protocol PRN Reason: Pain, Moderate(Pain Scale 4-6) Stop: 06/26/23 16:07 Hydromorphone HCl (Hydromorphone Hcl 0.5 Mg/0.5 Ml Syringe) 0.25 mg IVPUSH Q5M PRN; Protocol PRN Reason: Pain, Severe (Pain Scale 7-10) Stop: 06/26/23 16:07 Lactated Ringer's (Lr) 1,000 mls @ 100 mls/hr IVCONT .Q10H MEHDI Last Admin: 06/26/23 07:46 Dose: 100 mls/hr Documented By: CHARLIE Ondansetron HCl (Ondansetron Hcl 4 Mg/2 Ml Vial) 4 mg IVPUSH ONCE PRN PRN Reason: Nausea and Vomiting Stop: 06/26/23 16:07 Labs 06/26/23 15:49 06/26/23 15:49 Labs: Laboratory Results - last 24 hr 06/26/23 07:49 POC Glucose 108 Procedures Date of Service Date of Service: 06/27/23 Progress Note: A&P Assessment and plan (1) Morbid obesity: Status: Acute Assessment and Plan: s/p laparoscopic sleeve gastrectomy, lysis of adhesions and gastropexy Doing well Will check am labs and if OK the patient will be discharged home (2) Hypertension: Status: Acute (3) Hyperlipidemia: Status: Acute (4) Sleep apnea treated with continuous positive airway pressure (CPAP): Status: Acute (5) Depression: Status: Acute (6) Anxiety: Status: Acute (7) GERD (gastroesophageal reflux disease): Status: Acute (8) Hypothyroidism: Status: Acute (9) Erectile dysfunction: Status: Acute (10) Esophagitis: Status: Acute (11) Non-insulin dependent type 2 diabetes mellitus: Status: Acute (12) Congenital intra-abdominal adhesions: Status: Acute (13) S/P laparoscopic sleeve gastrectomy: Status: Acute Time Spent With Patient Time: Total time managing care of this patient today ____ minutes. Quality Stroke Does the patient have a stroke diagnosis?: No VTE Prior VTE?: No VTE Risk Level:: Surgical - moderate VTE Device Contraindication: N/A - Device Ordered VTE Drug Contraindication: Treatment Not Indicated
--- NOTE | 2023-06-26 11:29 | PM.DS ---
DS: Providers Provider Date of Service: 06/27/23 Date of admission: 06/26/23 07:20 Primary care physician: Unknown Physician DS: Diagnosis Discharge Diagnosis (1) Morbid obesity: Status: Acute (2) Hypertension: Status: Acute (3) Hyperlipidemia: Status: Acute (4) Sleep apnea treated with continuous positive airway pressure (CPAP): Status: Acute (5) Depression: Status: Acute (6) Anxiety: Status: Acute (7) GERD (gastroesophageal reflux disease): Status: Acute (8) Hypothyroidism: Status: Acute (9) Erectile dysfunction: Status: Acute (10) Esophagitis: Status: Acute (11) Non-insulin dependent type 2 diabetes mellitus: Status: Acute DS: Summary Hospital Course Hospital Course: ADMITTING DIAGNOSIS: morbid obesity,?NIDDM, GERD, hypothyroidism, anxiety, depression, STEVENSON/CPAP, HLD, HTN, abnormal EKG, esophagitis ? DISCHARGE DIAGNOSIS: same, s/p laparoscopic sleeve gastrectomy with gastropexy ? PAST SURGICAL HISTORY:?none ? PROCEDURE: upper endoscopy, laparoscopic sleeve gastrectomy and gastropexy ? DISCHARGE SUMMARY: ? History of Present Illness: ? The patient is a?37 year-old woman with a BMI of? 43.1? kg/m2 and associated co-morbidities as described above. The patient had extensive work-up, lost? 37.4? lbs preoperatively and was electively scheduled for laparoscopic, possible open sleeve gastrectomy and gastropexy. Risks and complications of the surgery were discussed with the patient in advance, particularly the possibility of , pulmonary embolism, anastomotic leak, bleeding, bowel injury, GERD, cardiac, renal or pulmonary complications. The patient understood all the risks and was in agreement with the surgical plan. ? Hospital Course: ? The patient underwent an uneventful laparoscopic sleeve gastrectomy with gastropexy on the day of admission. Postoperatively, the patient was transferred to the surgical floor. The patient received IV Acetaminophen and IV dilaudid for pain control. Patient was started on bariatric phase 1 diet POD #0. On postoperative day one, the patient was feeling well without nausea, vomiting, fevers, or tachycardia. The patient had some mild incisional pain and the abdomen was soft.? ? On the morning of postoperative day one, the patient was continued on 1 ounce of water or ice every half hour. During the day, the patient did fairly well, having some incisional pain, but able to ambulate adequately and to tolerate liquids well. ? Since the patient is doing well, we decided that the patient was ready to be discharged. The patient was given instructions to follow-up with me next week and to call my office for any fever over 101, persistent abdominal pain, nausea, vomiting, GERD, symptoms of DVT such as calf tenderness, or leg swelling, or pulmonary embolism such as chest pain or shortness of breath.? The patient was also instructed to drink 40-60 ounces of liquids per day using the 1-ounce cups. The patient had been given prescriptions for Tylenol for pain, Zofran prn for nausea, and pantoprazole and carafate previously. The patient was encouraged to ambulate and use the incentive spirometer. The patient was allowed to shower, but no baths, and encouraged to stay active at home. All of these instructions were given to the patient personally. All questions were answered and the patient understood all instructions, the instructions were also given to the patient in print. Time Attestation Discharge Coordination Time (in mins): 30 Quality: Safe Use of Opioids Does Pt have an Active Cancer Diagnosis on the Problem List?: No Quality: Stroke Does the patient have a stroke diagnosis?: No Physical Exam Vital Signs: Vital Signs: BMI result Body Mass Index 43.1 DS: Data Data Completed and Pending Labs on day of discharge: Laboratory Results - last 24 hr 06/26/23 07:49 POC Glucose 108 Discharge Plan Discharge Anticipated Discharge Date/Time: 06/27/23 10:00 Patient Disposition: Home, Self-Care Discharge Diagnosis: s/p laparoscopic sleeve gastrectomy with gastropexy Referrals: Physician,Unknown J [Primary Care Provider] - 1 Week Discharge Medications: Continued pantoprazole 40 mg tablet,delayed release (DR/EC) 40 mg PO DAILY Qty: 90 0RF sucralfate 100 mg/mL suspension 10 ml PO BID Qty: 600 2RF ondansetron 4 mg tablet,disintegrating 4 mg PO Q12H Qty: 20 0RF Rx Instructions: Only take one every 12 hours as needed if you have nausea bupropion HCl 150 mg tablet extended release 24 hr 150 mg PO QAM tadalafil 5 mg tablet 5 mg PO DAILY PRN (Reason: Sexual Activity) icosapent ethyl [Vascepa] 1 gram capsule 1 g PO BID levothyroxine 150 mcg capsule 150 mcg PO DAILY Patient Comments: 2 tabs on Sunday buspirone 15 mg tablet 15 mg PO BID Held lisinopril 20 mg tablet 20 mg PO DAILY Hold Instructions: Resume on 06/28/23. Check your blood pressure every morning as soon as you wake up and send it to Dr. Roland. Do no take the blood pressure medication if the blood pressure is below 120/70. Wait every day to hear back from Dr. Roland before you take the medication. Discontinued multivitamin Tablet 1 tab PO DAILY polyethylene glycol 3350 [Miralax] 17 gram powder in packet 17 g PO DAILY Qty: 14 0RF Rx Instructions: Mix each packet with 8oz of water, Crystal light, or Gatorade zero, or Propel and do 7 packets on 06/26/23 and another 7 packets on 06/27/23 metformin 500 mg tablet extended release 24 hr 500 mg PO DAILY Discharge Orders: Discharge Order (Routine); Ordered 06/27/23 Ordered By: Vinny Roland Activity on Discharge: No heavy lifting Stand Alone Forms: Patient Portal Discharge page Print Language: Welsh Care Plan Goals: weight loss Health Concerns: morbid obesity Plan of Treatment: No tub baths, sex or returning to work until discussed at first post op appointment. No alcohol, tobacco or illegal drug use. Continue to use incentive spirometer hourly while awake. Walk in home for 5- 10 minutes every 2 hours during the first week. Wear abdominal binder with activity. Follow all meal plan instructions from your bariatric surgeon. Review bariatric handbook and call with any questions. Discharge Instructions 1. Please call your doctor or come back to the emergency room should any new symptoms arise. 2. Activity: abstain from alcohol,? limited stair climbing, no bending, no driving, no exercise, no illicit substances, no lifting, no sex, no tub bath, no work. 4. Diet: follow your bariatric surgeons recommendations for advancing diet. 5. Dressing Change/Wound Care: Your incisions are covered with waterproof dressings. You can shower with these and pat dry. Do not rub over dressings or incisions. If the area is tender, you may apply an ice pack for short intervals (no more than 20 minutes on, followed by at least 20 minutes off). Do not apply heat. Do not use creams, lotions, or topical antibiotics unless instructed to do so by your surgeon. 6. Call your doctor if: - Your temperature exceeds 101.5 F - You experience excessive pain or swelling - You have an unexpected reaction to medication - You have excessive bleeding - You experience continued vomiting/nausea - Your incision begins to separate - Your incision shows signs of infection such as increased redness, swelling, excessive pain, heat, or drainage (light blood or clear fluid is normal) General instructions: No lifting greater than 10 lbs for the next 6 weeks[address] within 24 hours of taking narcotic pain medications. If you do not move your bowels in the next 2 days, please take milk of magnesia over the counter. Please follow the post op diet and do not advance your diet until you are seen in the office in about 2 weeks. Please walk around your home every hour or two to prevent blood clots from forming in your legs. You do not need to wake from sleeping to walk. Please sleep in a bed or couch to prevent kinking at the hips and knees. Please take your incentive spirometer (your lung repair cameraman) home with you and use it for the next few days to prevent pneumonias. You may shower, no hot tubs, baths or swimming pools. Please call the office with any questions or concerns such as increasing abdominal pain, fever, chills, shortness of breath, chest pain, leg pain or swelling, or redness or drainage from your incisions. Please make sure you are consuming 40-60 ounces of total fluids per day. Avoid all carbonation. Do not hesitate to contact the office with any questions at . The patient's medical history has been reviewed and they are considered low risk for post op DVT and therefore DVT prophylaxis is not considered necessary. Travel after surgery was reviewed. The patient has not disclosed any travel plans during the first 30 days after surgery and they have been advised that within the first 30 days after surgery any bus, plane, train or car travel over 2 hours in duration is contraindicated due to the possibility of developing blood clots from immobility. Any travel, needs to include periods of ambulation of 10 minutes in duration every 2 hours.? The patient was instructed to discuss any plans for travel during this period with their bariatric surgeon. Assessment: s/p laparoscopic sleeve gastrectomy with gastropexy Discharge Date/Time: 06/27/23 09:12
[2023-06-26 15:05] LABS: Glucose, Whole Blood 147 mg/dL (60-115)
[2023-06-26 16:03] LABS: Hematocrit 40.9 % (42.0-52.0); Hemoglobin 14.6 g/dl (14.0-18.0)
[2023-06-26 16:14] LABS: Anion Gap 15 (12-20); Blood Urea Nitrogen 11 mg/dL (9-16); Calcium 9.1 mg/dL (8.4-10.2); Carbon Dioxide 20 mmol/L (22-29); Chloride 104 mmol/L (96-108); Estimated Glomerular Filt Rate > 60; Glucose Random 150 mg/dL (60-115); Potassium 4.4 mmol/L (3.3-5.1); Sodium 135 mmol/L (135-145)
[2023-06-26 16:41] LABS: Glucose, Whole Blood 163 mg/dL (60-115)
[2023-06-26] MEDS: Acetaminophen 1,000 MG/100 ML PIGGYBACK 16.7 MG IV ×2 (17:30→22:17)
[2023-06-26] MEDS: Famotidine/PF 20 MG/2 ML VIAL IVPUSH (20:14)
[2023-06-26] MEDS: busPIRone HCl 5 MG TABLET 15 MG PO (20:14)
[2023-06-26 20:27] LABS: Glucose, Whole Blood 142 mg/dL (60-115)
[2023-06-27 00:06] LABS: Glucose, Whole Blood 144 mg/dL (60-115)
[2023-06-27 00:45] VITALS: PULSE 86; O2SAT 97
[2023-06-27 01:24] LABS: Vitamin A 58 mcg/dL (38-98)
[2023-06-27] MEDS: Lactated Ringers 1,000 ML 100 ML IVCONT (02:21)
[2023-06-27 03:22] VITALS: BP 131/76; PULSE 88; RESP 18; TEMP 36.3; O2SAT 96
[2023-06-27 03:33] LABS: Glucose, Whole Blood 135 mg/dL (60-115)
[2023-06-27] MEDS: Acetaminophen 1,000 MG/100 ML PIGGYBACK 16.7 MG IV (04:03)
[2023-06-27] MEDS: Levothyroxine Sodium 150 MCG TABLET PO (05:26)
[2023-06-27 07:35] LABS: Glucose, Whole Blood 126 mg/dL (60-115)
[2023-06-27 07:48] VITALS: BP 135/38; PULSE 92; RESP 16; TEMP 37; O2SAT 93
[2023-06-27] MEDS: Famotidine/PF 20 MG/2 ML VIAL IVPUSH (08:11)
[2023-06-27] MEDS: buPROPion HCl XL 150 MG TAB.ER.24H PO (08:11)
[2023-06-27] MEDS: busPIRone HCl 5 MG TABLET 15 MG PO (08:11)
[2023-06-27 08:43] LABS: MANUAL DIFF FLAG NO
[2023-06-27 08:47] LABS: Basophils Percent Auto 0.1 % (0-2); Hematocrit 39.6 % (42.0-52.0); Hemoglobin 13.9 g/dl (14.0-18.0); Imm Gran Abs Auto 0.04 X10*3/uL (0.00-0.03); Imm Gran Pct Auto 0.3 % (0.0-0.4); Lymphocytes Absolute Auto 1.4 X10*3/uL (1.2-4.9); Lymphocytes Percent Auto 10.5 % (20-40); Mean Corpuscular HGB Conc 35.1 g/dl (31.0-36.0); Mean Corpuscular Volume 85.5 fL (80.0-98.0); Mean Platelet Volume 10.2 fL (9.4-12.4); Monocytes Absolute Auto 0.4 X10*3/uL (0.1-1.2); Neutrophils Percent Auto 86.1 % (45-73); Platelet Count 352 X10*3/uL (160-400); Red Blood Count 4.63 X10*6/uL (4.60-5.80); Red Cell Distribution Width 13.5 % (11.0-16.0); White Blood Count 12.8 X10*3/uL (4.8-10.8)
--- NOTE | 2023-06-27 08:54 | HO.POSTANES ---
Post Anesthesia Evaluation Post Anesthesia Evaluation Date of Service: 06/26/23 Vital Signs: Vital Signs Temp Pulse Resp BP Pulse Ox O2 Del Method 06/27/23 07:48 98.6 F 92 16 135/38 L 93 Room Air 06/27/23 03:22 97.4 F 88 18 131/76 96 CPAP Anesthesia: General Endotracheal-GETA Mental Status: Awake Pain Control: Satisfactory Nausea/Vomiting: None Hydration: Adequate Anesthesia-Related Issues: No Anes. Related Issues
[2023-06-27 09:06] LABS: Anion Gap 16 (12-20); Blood Urea Nitrogen 8 mg/dL (9-16); Calcium 9.6 mg/dL (8.4-10.2); Carbon Dioxide 22 mmol/L (22-29); Chloride 102 mmol/L (96-108); Creatinine Clr Calc Pharmacy 186.6; Estimated Glomerular Filt Rate > 60; Glucose Random 126 mg/dL (60-115); Potassium 4.2 mmol/L (3.3-5.1); Sodium 136 mmol/L (135-145)
--- NOTE | 2023-06-27 09:14 | MHC.CM.PN ---
S?P Gastric sleeve. Patient lives with his Fiance'. He is independent with all functional mobility. He declined the offer to document a HCP. DP home self care. His fiance will transport home. He is discharged today.
== END 2023-06-27 09:12 | disposition home or self-care (01) | DRG 620 ==
LOC: HO.SSSA 15:07 → HO.S3 15:10
PROVIDERS: Physician Assistant Surgical; Admitting Provider Surgery; Visit Provider Surgery
PROC: 0DB64Z3 Excision of Stomach, Percutaneous Endoscopic Approach, Vertical (ICD-10-PCS; CPT 43845; principal; 2023-06-26 10:00)
DX: E66.01 Morbid (severe) obesity due to excess calories (principal); Q43.3 Congenital malformations of intestinal fixation; F41.9 Anxiety disorder, unspecified; F32.A Depression, unspecified; E11.9 Type 2 diabetes mellitus without complications; G47.33 Obstructive sleep apnea (adult) (pediatric); Z68.41 Body mass index [BMI] 40.0-44.9, adult; E03.9 Hypothyroidism, unspecified; I10 Essential (primary) hypertension; E78.5 Hyperlipidemia, unspecified; N52.9 Male erectile dysfunction, unspecified; Z79.890 Hormone replacement therapy; Z79.899 Other long term (current) drug therapy
CPT/HCPCS: 36415; 80048; 80053; 80061; 82947; 83036; 83525; 84439; 84443; 84590; 85014; 85018; 85025; 85610; 85730; 86140; 86850; 86900; 86901; 88307; 88342; 94660; A4649; C9088; C9145; J0131; J1100; J1170; J1956; J2250; J2405; J2704; J2795; J3010; J7120

== ENCOUNTER → 2023-06-26 07:20 | Outpatient (BNV) | payer OTHER, SELFPAY | PROVIDERS: Admitting Provider Surgery; Visit Provider Surgery | DX: E66.01 Morbid (severe) obesity due to excess calories (principal); Z68.41 Body mass index [BMI] 40.0-44.9, adult; Q43.3 Congenital malformations of intestinal fixation; Z98.84 Bariatric surgery status | CPT/HCPCS: 43659; 43775; 99024; 99499 ==

== ENCOUNTER 2023-07-04 10:30 | Outpatient (AMB) | payer OTHER, SELFPAY ==
--- NOTE | 2023-07-04 11:08 | A.OFFVIS_ITS ---
VS Expanded 07/04/23 11:42 BP 132/75 Blood Pressure Location Rt brachial Blood Pressure Position Sitting Pulse 90 Pulse Source Pulse Oximeter Temp 97.9 F Temperature Source Temporal Artery Scan Pulse Oximetry 96 Oxygen Delivery Method Room Air Height 5 ft 11 in Weight 306 lb BMI 42.7 Body Fat % 40.2 Body Fat Mass 123.0 Fat Free Mass 182.8 Visceral Fat Rating 23.0 Body Water % 41.7 Body Water Mass 127.6 Muscle Mass/Score 173.8 Basal Metabolic Rate/Score 2,586 Intake Visit Reasons: (OV) PO LSG 06/26/23 Allergies Penicillins Allergy (Mild, Verified 07/04/23 11:25) Rash HPI Comments Details: 37-year-old male returns to the office today in follow-up. He is approximately 8 days status post sleeve gastrectomy performed on 06/26/2023. He is tolerating 2 celebrate 4 in 1 shakes with 2 scoops each in approximately 40-50 oz of water. He is moved his bowels. He does continue lisinopril approximately 4 out of the last 7 days based on his blood pressure readings. He offers no significant complaints today. [facility] Medical History (Updated 06/30/23 @ 00:02 by Background Daemon) Non-insulin dependent type 2 diabetes mellitus Diabetes Erectile dysfunction Hypothyroidism GERD (gastroesophageal reflux disease) Anxiety Depression Sleep apnea treated with continuous positive airway pressure (CPAP) Hyperlipidemia Hypertension Morbid obesity Surgical History (Updated 06/30/23 @ 00:02 by Background Daemon) No history of previous surgery Family History Mother No problems noted. Father Lung cancer Brain cancer Social History Household Members: Significant Other Housing: House Are you a primary school child care attendant to a significant other at home: No Do you presently have visiting nurse or other home services: No Alcohol intake: never Patient Tobacco Use Status: Former Tobacco user Tobacco use type: Cigarette Second Hand Smoke Exposure: No service: No Physical Exam GI Inspection: Yes incision (c,d,i) Assessment & Plan Assessment & Plan (1) S/P laparoscopic sleeve gastrectomy: Code(s): Z98.84 - Bariatric surgery status Category: Surgical Plan: POD 8 s/p LSG on 06/26/[address] Roland Weight loss prior to surgery was 33.2 pounds or 9.5 % TBWL. Original weight on 01/26/2023 was 346.4 pounds and op weight was 313.2 pounds. Be sure to text Dr Roland exactly 1 week after surgery your weight from your home scale so he can adjust your meal plan. Continue meal plan until f/u racquel Minor in 2 weeks May shower, no submersion in bath for another week Continue abdominal binder with activity and exercise for the next 2 weeks. Exercise prior to surgery was stationary bike and walking and may resume No abdominal exercises for 6 weeks post operatively Will be emailed link to post op video for review Reminded of the pace of drinking, 2 mL per minute, 1 oz/15 min.
[2023-07-04 11:42] VITALS: BP 132/75; PULSE 90; TEMP 36.6; O2SAT 96; BMI 42.7
== END 2023-07-04 11:39 | disposition home or self-care (01) ==
PROVIDERS: Visit Provider Physician Assistant Surgical
DX: Z90.3 Acquired absence of stomach [part of] (principal); Z98.84 Bariatric surgery status
CPT/HCPCS: 99024

== ENCOUNTER → 2023-07-04 10:30 | Outpatient (BNVA) | payer OTHER, SELFPAY | PROVIDERS: Visit Provider Physician Assistant Surgical ==

== ENCOUNTER 2023-08-06 11:27 | Outpatient (AMB) | payer OTHER, SELFPAY ==
--- NOTE | 2023-08-06 08:33 | A.OFFVIS_ITS ---
VS Expanded 08/06/23 08:34 Height 5 ft 11 in Weight 284 lb 1 oz BMI 39.6 Body Fat % 51.4 Body Fat Mass 146 Intake Visit Reasons: (ov) PO LSG 06/26/23 General Accounting Clerk Required: No Allergies Penicillins Allergy (Mild, Verified 07/04/23 11:25) Rash Medication List - Last Reconciled 08/06/23 by MOISES Myles bupropion HCl XL 150 mg PO QAM buspirone 15 mg PO BID icosapent ethyl (Vascepa) 1 g PO BID levothyroxine 150 mcg PO DAILY pantoprazole 40 mg PO DAILY sucralfate 10 mL PO BID tadalafil 5 mg PO DAILY PRN HPI Comments Details: This?a?37?yo male who is s/p LSG without hiatal hernia repair on?06/26/2023. Pr esents for 1 month post op visit. Weight today is 284.1 pounds, with a BMI of 39.6. There has been a 62.3 pound weight loss,(initial weight 346.4 pounds) since starting the program on 01/26/2023 reflecting a 17.9 % total body weight loss and a weight loss of 29.1 pounds since surgery (operative weight 313.2 pounds) reflecting a 9.2 % TBWL since surgery. No complaints of nausea, emesis, abdominal pain or reflux. Reports infrequent but normal bowel movements every 2- 3 days and uses stool softeners regularly. Patient states that he is doing well overall. He does struggle with exercise as he has to wake up approximately 03:00 and gets home in the early evening. He works very far away from home. He has doing the best that he can. He is satisfied with his meal plan. Present meal plan includes: 2 Celebrate 4 in 1, 2 scoops in 8 oz almond milk Premier protein 1 scoop in 8 oz almond milk ZP bar 3-4 days per week drinking 40-60 oz water ? Exercise routine includes: 30 min cardio at work stationary bike 3-4 days per week 250-300 calories [facility] Medical History (Updated 07/05/23 @ 00:02 by Background Dachristopher) Non-insulin dependent type 2 diabetes mellitus Diabetes Erectile dysfunction Hypothyroidism GERD (gastroesophageal reflux disease) Anxiety Depression Sleep apnea treated with continuous positive airway pressure (CPAP) Hyperlipidemia Hypertension Morbid obesity Surgical History (Updated 07/05/23 @ 00:02 by Alek Gifford) No history of previous surgery Family History Mother No problems noted. Father Lung cancer Brain cancer Social History Household Members: Significant Other Housing: House Are you a primary healthcare liaison to a significant other at home: No Do you presently have visiting nurse or other home services: No Alcohol intake: never Patient Tobacco Use Status: Former Tobacco user Tobacco use type: Cigarette Second Hand Smoke Exposure: No service: No Telehealth Telehealth Telehealth Platform: Telephone Location of provider rendering services: practice address Location of patient: address on file Patient Identification confirmed using: Name, : Yes Telehealth method: voice only Patient verbally consented to treatment: Yes Patient verbally consented to billing insurance company: Yes Patient informed of any privacy concerns related to visit: Yes Minutes spent on Phone/Video with Pt.: 15 Assessment & Plan Assessment & Plan (1) S/P laparoscopic sleeve gastrectomy: Code(s): Z98.84 - Bariatric surgery status Category: Surgical Plan: Overall, doing well. He will continue his current meal plan. He did ask about eating out for his birthday coming up in several days. He was instructed he could have 4 forks of white flushed fish and 2 forks of cooked vegetables if he wishes. He will try to incorporate another day of stationary bike, 30-40 minutes. Ultimately trying to increase his calories burned to 400-450 calories. Return to the office in 1 month. Encouraged to continue to text weekly with his weight and if any questions or concerns.
[2023-08-06 08:34] VITALS: BMI 39.6
== END 2023-08-06 11:28 | disposition home or self-care (01) ==
LOC: HO.HBS 11:27
PROVIDERS: Visit Provider Physician Assistant Surgical
DX: Z98.84 Bariatric surgery status (principal)
CPT/HCPCS: 99024

== ENCOUNTER → 2023-08-06 11:27 | Outpatient (BNVA) | payer OTHER, SELFPAY | PROVIDERS: Visit Provider Physician Assistant Surgical ==

== ENCOUNTER 2023-09-10 13:18 | Outpatient (AMB) | payer OTHER, SELFPAY ==
[2023-09-10 08:38] VITALS: BMI 37.7
--- NOTE | 2023-09-10 08:38 | MHC.OFFVISWM ---
VS Expanded 09/10/23 08:38 Height 5 ft 11 in Weight 270 lb 3.2 oz BMI 37.7 Body Fat % 48 Intake Visit Reasons: (tv) PO LSG 06/26/23 Allergies Penicillins Allergy (Mild, Verified 07/04/23 11:25) Rash HPI Comments Details: This?a?37?yo male who is s/p LSG without hiatal hernia repair on?06/26/2023. Presents for 2.5 month post op visit. Weight today is 270.2 pounds, with a BMI of 39.6. There has been a 76.2 pound weight loss,(initial weight 346.4 pounds) since starting the program on 01/26/2023 reflecting a 21.9 % total body weight loss and a weight loss of 43 pounds since surgery (operative weight 313.2 pounds) reflecting a 13.7 % TBWL since surgery. No complaints of nausea, emesis, abdominal pain or reflux. Reports infrequent but normal bowel movements every 2-3 days and uses stool softeners regularly. Patient states that he is doing well overall. He does struggle with exercise as he has to wake up approximately 03:00 and gets home in the early evening. He works very far away from home. He has doing the best that he can. He is satisfied with his meal plan Although would like to incorporate food Present meal plan includes: 2 Celebrate 4 in 1, 2 scoops in 8 oz almond milk Premier protein 1 scoop in 8 oz almond milk ZP bar 3-4 days per week drinking 40-60 oz water ? Exercise routine includes: 30 min cardio at work stationary bike 3-4 days per week 250-300 calories REPLACED BY [facility] Medical History (Updated 07/05/23 @ 00:02 by Background Daemon) Non-insulin dependent type 2 diabetes mellitus Diabetes Erectile dysfunction Hypothyroidism GERD (gastroesophageal reflux disease) Anxiety Depression Sleep apnea treated with continuous positive airway pressure (CPAP) Hyperlipidemia Hypertension Morbid obesity Surgical History (Updated 07/05/23 @ 00:02 by Background Daemon) No history of previous surgery Family History Mother No problems noted. Father Lung cancer Brain cancer Social History Household Members: Significant Other Housing: House Are you a primary care associate to a significant other at home: No Do you presently have visiting nurse or other home services: No Alcohol intake: never Patient Tobacco Use Status: Former Tobacco user Tobacco use type: Cigarette Second Hand Smoke Exposure: No service: No Physical Exam Vital Signs: BMI result Body Mass Index 37.7 Telehealth Telehealth Telehealth Platform: Telephone Location of provider rendering services: practice address Location of patient: address on file Patient Identification confirmed using: Name, : Yes Telehealth method: voice only Patient verbally consented to treatment: Yes Patient verbally consented to billing insurance company: Yes Patient informed of any privacy concerns related to visit: Yes Minutes spent on Phone/Video with Pt.: 10 Assessment & Plan Assessment & Plan (1) S/P laparoscopic sleeve gastrectomy: Code(s): Z98.84 - Bariatric surgery status Category: Medical Plan: overall doing well and very satisfied with his progress and meal plan. He would like to incorporate food and we will change his meal plan accvordingly: 2 Celebrate 4 in 1, 2 scoops in 8 oz almond milk Premier protein 1 scoop in 8 oz almond milk Meal with 4 forks protein and 4 forks cooked vegetables. He will text with any questions or concerns. Continue exercises he is doing. Return to clinic 1 month.
== END 2023-09-10 13:19 | disposition home or self-care (01) ==
LOC: HO.HBS 13:18
PROVIDERS: Visit Provider Physician Assistant Surgical
DX: Z98.84 Bariatric surgery status (principal)
CPT/HCPCS: 99024

== ENCOUNTER → 2023-09-10 13:18 | Outpatient (BNVA) | payer OTHER, SELFPAY | PROVIDERS: Visit Provider Physician Assistant Surgical ==

== ENCOUNTER 2023-10-11 13:24 | Outpatient (AMB) | payer OTHER, SELFPAY ==
--- NOTE | 2023-10-11 11:52 | MHC.OFFVISWM ---
VS Expanded 10/11/23 11:54 Height 5 ft 11 in Weight 260 lb 2 oz BMI 36.3 Intake Visit Reasons: (tv) PO LSG 06/26/23 Fiscal Specialist Required: No Allergies Penicillins Allergy (Mild, Verified 07/04/23 11:25) Rash Medication List - Last Reconciled 10/11/23 by MOISES Myles bupropion HCl XL 150 mg PO QAM buspirone 15 mg PO BID icosapent ethyl (Vascepa) 1 g PO BID levothyroxine 150 mcg PO DAILY tadalafil 5 mg PO DAILY PRN HPI Comments Details: This?a?37?yo male who is s/p LSG without hiatal hernia repair on?06/26/2023. Presents for 3.5 month post op visit. Weight today is 260.2 pounds, with a BMI of 36.3. There has been a 86.2 pound weight loss,(initial weight 346.4 pounds) since starting the program on 01/26/2023 reflecting a 24.8 % total body weight loss and a weight loss of 53 pounds since surgery (operative weight 313.2 pounds) reflecting a 16.9 % TBWL since surgery. No complaints of nausea, emesis, abdominal pain or reflux. Reports infrequent but normal bowel movements every 2-3 days and uses stool softeners regularly. Patient states that he is doing well overall. He does struggle with exercise as he has to wake up approximately 03:00 and gets home in the early evening. He works very far away from home. He has doing the best that he can. He is satisfied with his meal plan Present meal plan includes: 2 Celebrate 4 in 1, 2 scoops in 8 oz almond milk Premier protein 1 scoop in 8 oz almond milk Meal with 4 forks protein and 4 forks cooked vegetables. drinking 40-50 oz water ? Exercise routine includes: 30 min cardio at work stationary bike 4-5 days per week 250-300 calories COUNT INCLUDES THE [facility] Medical History Non-insulin dependent type 2 diabetes mellitus Diabetes Erectile dysfunction Hypothyroidism GERD (gastroesophageal reflux disease) Anxiety Depression Sleep apnea treated with continuous positive airway pressure (CPAP) Hyperlipidemia Hypertension Morbid obesity Surgical History No history of previous surgery Family History Mother No problems noted. Father Lung cancer Brain cancer Social History Household Members: Significant Other Housing: House Are you a primary residential care officer to a significant other at home: No Do you presently have visiting nurse or other home services: No Alcohol intake: never Patient Tobacco Use Status: Former Tobacco user Tobacco use type: Cigarette Second Hand Smoke Exposure: No service: No Telehealth Telehealth Telehealth Platform: Telephone Location of provider rendering services: practice address Location of patient: address on file Patient Identification confirmed using: Name, : Yes Telehealth method: voice only Patient verbally consented to treatment: Yes Patient verbally consented to billing insurance company: Yes Patient informed of any privacy concerns related to visit: Yes Minutes spent on Phone/Video with Pt.: 15 Assessment & Plan Assessment & Plan (1) S/P laparoscopic sleeve gastrectomy: Code(s): Z98.84 - Bariatric surgery status Category: Surgical Plan: Doing well. Satisfied with his meal plan. Following closely. Recommend increase water intake slightly and attempt to do some form of exercise every day. He does work very far from home, awakening very early in the morning. We will have him return to the office in approximately 4-5 weeks. He will text weekly with his weight and if any questions or concerns.
[2023-10-11 11:54] VITALS: BMI 36.3
== END 2023-10-11 13:49 | disposition home or self-care (01) ==
LOC: HO.HBS 13:24
PROVIDERS: Visit Provider Physician Assistant Surgical
DX: E66.9 Obesity, unspecified (principal); Z68.36 Body mass index [BMI] 36.0-36.9, adult; Z90.3 Acquired absence of stomach [part of]; Z98.84 Bariatric surgery status
CPT/HCPCS: G2252

== ENCOUNTER → 2023-10-11 13:24 | Outpatient (BNVA) | payer OTHER, SELFPAY | PROVIDERS: Visit Provider Physician Assistant Surgical | DX: Z98.84 Bariatric surgery status (principal) ==

== ENCOUNTER 2023-11-16 13:30 | Outpatient (AMB) | payer OTHER, SELFPAY ==
--- NOTE | 2023-11-16 10:33 | MHC.OFFVISWM ---
VS Expanded 11/16/23 10:41 Height 5 ft 11 in Weight 250 lb 8 oz BMI 34.9 Intake Visit Reasons: (tv) PO LSG 06/26/23 Allergies Penicillins Allergy (Mild, Verified 07/04/23 11:25) Rash HPI Comments Details: This?a?38?yo male who is s/p LSG without hiatal hernia repair on?06/26/2023. Presents for 5 month post op visit. Weight today is 250.8 pounds, with a BMI of 34.9. There has been a 95.6 pound weight loss,(initial weight 346.4 pounds) since starting the program on 01/26/2023 reflecting a 27.5 % total body weight loss and a weight loss of 62.4 pounds since surgery (operative weight 313.2 pounds) reflecting a 19.9 % TBWL since surgery. No complaints of nausea, emesis, abdominal pain or reflux. Reports infrequent but normal bowel movements every 2-3 days and uses stool softeners regularly. Patient states that he is doing well overall. He does struggle with exercise as he has to wake up approximately 03:00 and gets home in the early evening. He works very far away from home. He has doing the best that he can. He is satisfied with his meal plan He sometimes skips his meal. States he is somewhat bored with the current meal plan. He is doing the best that he can though. He additionally is going to be on the road quite a bit or not at all depending on his companies schedule. He offers no significant complaints. Present meal plan includes: 2 Celebrate 4 in 1, 2 scoops in 8 oz almond milk Premier protein 1 scoop in 8 oz almond milk Meal with 4 forks protein and 4 forks cooked vegetables. drinking 40-50 oz water ? Exercise routine includes: 30-40 min stationary bike 4-5 days per week 250-300 calories [facility] Medical History Non-insulin dependent type 2 diabetes mellitus Diabetes Erectile dysfunction Hypothyroidism GERD (gastroesophageal reflux disease) Anxiety Depression Sleep apnea treated with continuous positive airway pressure (CPAP) Hyperlipidemia Hypertension Morbid obesity Surgical History No history of previous surgery Family History Mother No problems noted. Father Lung cancer Brain cancer Social History Household Members: Significant Other Housing: House Are you a primary care associate to a significant other at home: No Do you presently have visiting nurse or other home services: No Alcohol intake: never Patient Tobacco Use Status: Former Tobacco user Tobacco use type: Cigarette Second Hand Smoke Exposure: No service: No Telehealth Telehealth Telehealth Platform: Telephone Location of provider rendering services: practice address Location of patient: other Patient Identification confirmed using: Name, : Yes Telehealth method: voice only Patient verbally consented to treatment: Yes Patient verbally consented to billing insurance company: Yes Patient informed of any privacy concerns related to visit: Yes Minutes spent on Phone/Video with Pt.: 12 Assessment & Plan Assessment & Plan (1) S/P laparoscopic sleeve gastrectomy: Code(s): Z98.84 - Bariatric surgery status Category: Medical Plan: 2 Celebrate 4 in 1, 2 scoops in 8 oz almond milk Premier protein 1 scoop in 8 oz almond milk, or Malaysian yogurt with fresh berries or 2 eggs Meal with 4 forks protein and 4 forks cooked vegetables. Encouraged to continue exercise as he is able. Continue communicating weekly with his weight is and with any questions or concerns. Plan on return to clinic for six-month postop appointment next month
[2023-11-16 10:41] VITALS: BMI 34.9
== END 2023-11-16 13:54 | disposition home or self-care (01) ==
LOC: HO.HBS 13:51
PROVIDERS: Visit Provider Physician Assistant Surgical
DX: E66.9 Obesity, unspecified (principal); Z68.34 Body mass index [BMI] 34.0-34.9, adult; Z90.3 Acquired absence of stomach [part of]; Z98.84 Bariatric surgery status
CPT/HCPCS: G2252

== ENCOUNTER → 2023-11-16 13:30 | Outpatient (BNVA) | payer OTHER, SELFPAY | PROVIDERS: Visit Provider Physician Assistant Surgical | DX: Z98.84 Bariatric surgery status (principal) ==